=== PATIENT | male | born 1960 | race Caucasian/White ===

== ENCOUNTER 2017-10-26 06:36 | Day surgery (SDC) | payer BC, OTHER ==
--- NOTE | 2017-09-30 10:08 | HP ---
PREOPERATIVE HISTORY AND PHYSICAL: DATE OF ADMISSION/SURGERY: 10/26/17 [facility] DATE OF OFFICE VISIT: 09/29/17 ATTENDING SURGEON: Mason Adhikari MD * (DICTATED BY SARAH RODRIGES) PROCEDURE: Right shoulder arthroscopy, decompression, debridement, subpectoral biceps tenodesis, and excision of distal clavicle. CHIEF COMPLAINT: Right shoulder pain. HISTORY OF PRESENT ILLNESS: Rajiv is a 57-year-old male who presents to the clinic for right shoulder pain due to impingement, AC joint arthritis and biceps tendonitis for several months. He has failed conservative measures and therefore agreed to undergo a right shoulder arthroscopy, decompression and debridement, subpectoral biceps tenodesis, and excision of distal clavicle with Dr. Adhikari on 10/26/17. PAST MEDICAL HISTORY: History of DVT in 2008, history of diabetes, and history of benign PVCs. PAST SURGICAL HISTORY: Left ankle repair, left shoulder debridement, left eye muscle repair, and hemorrhoid surgery. The patient denies prior complications with anesthesia. MEDICATIONS: 1. Magnesium oxide 400 mg one by mouth twice a day. 2. Aspirin 81 mg one by mouth every day. 3. Losartan potassium 25 mg one by mouth every day. 4. Januvia 100 mg take one by mouth every day. 5. Metformin 1000 mg one by mouth twice a day. 6. Fluticasone propionate 50 mcg/ACT two sprays each nostril daily as needed. 7. Ibuprofen 200 mg two tablets as needed for pain. ALLERGIES: SHELLFISH. FAMILY HISTORY: Denies pertinent family history. 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 He denies tobacco use. He reports occasional alcohol consumption. He denies illegal drug use. REVIEW OF SYSTEMS: A 14-point review of systems was reviewed with the patient. Positive for current complaint, otherwise negative. Denies chest pain or shortness of breath. Denies fever or chills. Denies history of bleeding disorder. Denies history of MRSA. Positive for history of DVT. PHYSICAL EXAMINATION GENERAL: Well-developed, well-nourished 57-year-old male, in no acute distress. Alert and oriented x3. Appropriate mood and affect. VITAL SIGNS: Height 73, weight 231, pulse 72, blood pressure 124/78, temperature 96.1, BMI 30.5. HEENT: Normocephalic, atraumatic. PERRLA. Throat clear. NECK: Supple. PULMONARY: Lungs are clear to auscultation bilaterally. No wheezing, rhonchi, or rales. CARDIO: Regular rate and rhythm. S1 and S2. No murmurs, gallops, or rubs. No edema. ABDOMEN: Positive bowel sounds, soft, nontender. NEUROLOGIC: Alert and oriented x3. Cranial nerves are grossly intact. Sensation is intact to light touch. MUSCULOSKELETAL: Right upper extremity: Skin is intact. No warmth or erythema. Forward flexion 140, abduction 140, external rotation 45, internal rotation to the sacrum. +4/5 strength to supraspinatus testing. Pain with belly press and bear hug. Positive Neer's, Speed, Gomes-Agustin, [place]. + 2 radial pulse. Sensation is intact to light touch distally. STUDIES: No full thickness tear of the rotator cuff, some mild tendinosis, fluid along the biceps groove and fluid in the AC joint. IMPRESSION: Right shoulder impingement, AC joint arthritis, and biceps tendonitis. PLAN/RECOMMENDATIONS: The patient is scheduled to undergo a right shoulder arthroscopy, decompression, and debridement, subpectoral biceps tenodesis, and excision of distal clavicle with Dr. Adhikari on 10/26/17. He will return to the office in 10 to 14 days postop for followup and suture removal. [place] was sent to the patient's pharmacy for postop pain management, Zofran for treatment of nausea, and Keflex for antibiotic prophylaxis. SARAH RODRIGES [id number]/[facility] #: [id number] MTDSanju
[~2017-10-26 06:36] MED LIST: Buffered Lidocaine 0.9% SYRIN* 5 ML/SYR SYRINGE INTRADERM ONE
[2017-10-26] MEDS ORDERED: ceFAZolin 2 GM PREMIX (*) 2 GM/50 ML BAG IVPB ONE (06:45)
[2017-10-26] MEDS ORDERED: Bupivacaine 0.25% SDV* 30 ML ONE (07:00)
[2017-10-26] MEDS ORDERED: fentaNYL* 50 MCG/ML 2 ML VIAL (100 MCG VIAL) ONE (07:31)
[2017-10-26] MEDS ORDERED: Midazolam* 1 MG/ML 2 ML VIAL (2 MG) ONE ×2 (07:31→07:56)
[2017-10-26] MEDS ORDERED: Famotidine IV* 10 MG/ML 2 ML (20 mg) ONE (07:48)
[2017-10-26] MEDS ORDERED: ROPIVACAINE 5 MG/ML 30 ML BTL (0.5%) ONE (07:49)
[2017-10-26] MEDS ORDERED: Propofol* 10 MG/ML 20 ML BTL IV PUSH ONE (08:17)
[2017-10-26] MEDS ORDERED: Dexamethasone IV* 4 MG/ML 1 ML (4 MG) ONE (08:17)
[2017-10-26] MEDS ORDERED: Ketorolac INJ* 30 MG/ML 1 ML VIAL ONE (08:17)
[2017-10-26] MEDS ORDERED: Ondansetron INJ* 2 MG/ML VIAL ONE (08:17)
[2017-10-26] MEDS ORDERED: methylPREDNISolone ACETATE 80* 80 MG/ML 1 ML VIAL ONE (08:49)
[2017-10-26] MEDS ORDERED: DiMENhydriNATE IV* 50 MG/ML VIAL IV PUSH PRN (08:58)
[2017-10-26] MEDS ORDERED: PROCHLORPERAZINE INJ 5 MG/ML 2 ML VIAL IV PRN (08:58)
[2017-10-26] MEDS ORDERED: Ondansetron INJ* 2 MG/ML VIAL IV PRN (08:58)
[2017-10-26] MEDS ORDERED: Acetaminophen TAB* 325 MG PO PRN (08:58)
[2017-10-26] MEDS ORDERED: HYDROcodone/ACETAMIN 5-325 MG* 1 TAB PO PRN (08:58)
[2017-10-26] MEDS ORDERED: HYDROmorphone INJ* 1 MG/ML CARPUJECT SYRINGE IV PRN (08:58)
[2017-10-26] MEDS ORDERED: fentaNYL* 50 MCG/ML 2 ML VIAL (100 MCG VIAL) IV PRN (08:58)
[2017-10-26] MEDS ORDERED: Phenylephrine IV* 40 MCG/ML 10 ML SYRINGE ONE (09:08)
[2017-10-26 11:37] VITALS: BP 124/68
--- NOTE | 2017-10-27 02:03 | OP ---
CC: PCP, Merrill Slade NP * DATE OF OPERATION: 10/26/17 - [facility] DATE OF : 62 SURGEON: Mason Adhikari MD ASTROBIOLOGIST: SARAH Maurer ANESTHESIOLOGIST: Diego Singh MD ANESTHESIA: General interscalene block. PRE-OP DIAGNOSES: Right shoulder acromioclavicular joint arthritis, bicipital tendinitis with SLAP type 2 tear and impingement. POST-OP DIAGNOSES: Right shoulder impingement, SLAP tear, acromioclavicular joint arthritis as well as mild adhesive capsulitis. OPERATIVE PROCEDURE: 1. Right shoulder arthroscopy with glenohumeral debridement and lysis of adhesions in the interval. 2. Subacromial decompression with acromioplasty. 3. Arthroscopic distal clavicle excision. 4. Open subpectoral biceps tenodesis. 5. Subacromial injection of 80 mg of Depo-Medrol. 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 He has had number surgeries on his left shoulder and he continued to have persistent issues, but his right shoulder has been bothering him. We talked about risks and benefits of surgical versus nonoperative treatment, he has elected to proceed with surgery. IMPLANTS USED: One 2.8-mm Q-Fix anchor. COMPLICATIONS: None. ESTIMATED BLOOD LOSS: Minimal. DESCRIPTION OF PROCEDURE: The patient was greeted in the preoperative area by the attending surgeon. Correct extremity was marked and consent was confirmed. The patient was brought back to the operating suite, where he was placed in supine position on the operating table. He then underwent preoperative interscalene nerve block by the anesthesiologist, after which he underwent general anesthesia with endotracheal intubation. The patient was then placed in left lateral decubitus position with an axillary roll. All bony prominences were padded. He was secured with the pegboard. His right arm was draped unsterile with 10 pounds of traction. The right shoulder was prepped and draped in usual sterile fashion using chlorhexidine soap, scrub, and alcohol wipe, and a final prep of ChloraPrep. After appropriate surgical pause indicating site, side, procedure, and administration of antibiotics, the standard posterior lateral portal was made sharply with an 11 blade. The scope was introduced into the joint. Joint had abundant synovitis and erythema particularly under the supraspinatus and the interval. There was a thick band of scar. The superior labrum was torn from anterior posterior from the 10 o'clock to 2 o'clock position. The anterior labrum had some mild fraying. There were grade 0 to 1 changes to the glenoid, grade 0 to 1 changes to the humeral head. The inferior recess was intact. The anterior portals were made in outside-in fashion. The subscap was intact. The undersurface of the rotator cuff had a very mild amount of fraying particularly at the supraspinatus. The infraspinatus was intact. There was mild amount of early arthritic changes, grade 2 changes at the very inferior aspect of the humerus. The inferior recess was intact. There was synovitis that was present. The anterior portal was made in an outside-in fashion. Shaver was used to debride the anterior, posterior and superior labrum. The biceps was taken through range of motion rather and found to have abundant synovitis and irritation with some mild damage to the michael. The biceps was then tenotomized. The shaver was used to debride back the stump. The capsular tissue in the interval was very inflamed and irritated. This was then debrided back using an electrocautery device to try to release some of the tight bands of scar tissue in the interval anteriorly. At this point, the rotator cuff was examined to see if there was any tearing on the bursal side, but the quality of tissue was very good, it was determined to not require any kind of repair or further debridement. The joint was thoroughly irrigated. The scope was brought into the subacromial space. The subacromial space was examined. There was a moderate amount of bursitis that was present, particularly posterior and laterally. The lateral portal was made in an outside-in fashion. Shaver was used to debride back the bursa and to expose the rotator cuff, which had no evidence of tearing, was good quality. There was a moderate-sized spur verona-laterally that was taken back, which was exposed using electrocautery device. The spur was identified and then 4-0 oval bur was used to debride this back and all fluid and debris was removed. Once this was complete, attention was directed to the AC joint. Distal clavicle was examined and there was a significant amount of stenosis. The bur was brought to the anterior portal and used to remove approximately 8 mm of distal clavicle. The clavicle was taken through range of motion. Final images were obtained. All fluid and debris was moved from this portion of the case. At this point, an 18-gauge needle was placed in subacromial space under arthroscopic visualization for later injection. Attention was directed to the biceps. Bed was air planed to the right side. The anterior aspect of the shoulder was prepped again using a ChloraPrep, the soft tissue was carefully dissected using Metzenbaum scissors until the fascia was identified, the remainder dissection was done bluntly. The pec was elevated superiorly, the bicipital groove was palpated. Biceps was brought through the groove and found to have abundant synovitis and inflammation and mild amount of tendinopathy. The groove was then prepared in usual fashion with electrocautery device, red ball rasp, osteotome. Once this was done, the Q -Fix anchor was placed with excellent purchase. Unicortically, the sutures were then passed through the tendon approximately 1 cm proximal to the musculotendinous junction in Nolberto Etienne-type configuration. The excess stump was excised and the biceps shuttled back into the wound. The wounds were copiously irrigated with sterile saline. The anterior wound was closed in layers with 2-0 Vicryl, 3-0 Monocryl. The portals were closed with 3-0 nylon. The subacromial space was injected with 80 mg of Depo-Medrol. The anterior wound was injected with 20 cc of 0.25% Marcaine plain. Sterile dressings were applied, a Cryo/Cuff, and UltraSling. He was awoken from anesthesia and transferred to the PACU in stable condition. POSTOPERATIVE PLAN: He will be nonweightbearing. He will be in a sling for approximately 4 weeks. He will be discharged on pain medication, antibiotics. DVT prophylaxis was considered but deferred due to no previous personal or family history. I will see the patient back in 10 to 14 days. [id number]/[facility] #: [id number] [facility] HOSPITALSanju
== END 2017-10-26 11:12 | disposition home or self-care (01) ==
LOC: OREAST 06:36
PROVIDERS: ATTEND Orthopaedic Surgery
DX: M19.011 Primary osteoarthritis, right shoulder (principal); M75.21 Bicipital tendinitis, right shoulder; S43.431A Superior glenoid labrum lesion of right shoulder, initial encounter; M25.811 Other specified joint disorders, right shoulder; M75.01 Adhesive capsulitis of right shoulder; X58.XXXA Exposure to other specified factors, initial encounter; Y92.9 Unspecified place or not applicable; G89.18 Other acute postprocedural pain; M75.81 Other shoulder lesions, right shoulder; Z79.82 Long term (current) use of aspirin; Z79.84 Long term (current) use of oral hypoglycemic drugs; E11.9 Type 2 diabetes mellitus without complications
CPT/HCPCS: C1776; J0690; J1040; J1100; J1885; J2250; J2405; J2704; J2795; J3010

== ENCOUNTER 2018-05-10 16:08 | Inpatient (IN) | payer BC ==
[2018-05-10] MEDS ORDERED: Ampicillin ADVAN(*) 1 GM in NS 0.9% 50 ML* 50 ML IVPB ONE (16:23)
[2018-05-10 16:52] LABS: ABS Basophils 0 10^3/ul (0-0.2); ABS Eosinophils 0.3 10^3/ul (0-0.6); ABS Lymphocytes 1.3 10^3/ul (1.0-4.8); ABS Monocytes 0.6 10^3/ul (0-0.8); ABS Neutrophils 3.5 10^3/ul (1.5-7.7); ABS Nucleated RBC 0 10^3/ul; Eosinophil % 4.7 % (0-6); Hematocrit 42 % (42-52); Hemoglobin 14.4 g/dl (14.0-18.0); Lymphocyte % 22.6 % (25-47); Mean Corpuscular HGB Conc 35 g/dl (31-36); Mean Corpuscular Hemoglobin 31 pg (27-31); Mean Corpuscular Volume 89 fL (80-94); Mean Platelet Volume 8.7 um3 (7.4-10.4); Nucleated Red Blood Cells % 0.1; Platelet Count 239 10^3/ul (150-450); Red Blood Count 4.69 10^6/ul (4.00-5.40); Red Cell Distribution Width 13 % (10.5-15); White Blood Count 5.7 10^3/ul (3.5-10.8)
--- NOTE | 2018-05-10 16:56 | RAD ---
Indication: Preop osteomyelitis. Single frontal view of the chest performed at 1645 hours was reviewed. Comparison is made with previous exam dated April 11, 2015. No mediastinal shift is noted. Heart is of normal size and configuration. Lung garvey appear clear. IMPRESSION: NO ACTIVE CARDIOPULMONARY DISEASE IS NOTED.
[2018-05-10 17:01] LABS: INR 0.98 (0.77-1.02)
[2018-05-10] MEDS ORDERED: Fluticasone NASAL SPRAY 50MCG* 16 gm SPRAY BTL BOTH NARES PRN (17:09)
[2018-05-10] MEDS ORDERED: Vancomycin(*) 1,000 MG in NS 0.9% 250 ML* 250 ML IVPB ONE (17:10)
[2018-05-10] MEDS ORDERED: Dextrose 50% Syringe 50 ML* 25 GM/50 ML SYRINGE IV PUSH PRN (17:15)
--- NOTE | 2018-05-10 17:18 | ED ---
Ari Hennessy Tenzin, scribed for Rajiv Rico MD on 05/10/18 at 1637 . Lower Extremity - HPI Summary HPI Summary: Pt is a 58 years old male with history of NIDDM presenting to the ED complaining of left foot swelling since two weeks ago. Pt had an MRI done at [facility] and per triage, diagnosed with osteomylitis. Pt notes that he was recently on Clindamycin and Cipro and added that he just finished his Cipro today. He does not note any aggravating factor. - History of Current Complaint Chief Complaint: EDExtremityLower Stated Complaint: LT FT SWOLLEN Time Seen by Provider: 05/10/18 16:16 Hx Obtained From: Patient Onset/Duration: Weeks - two weeks. Pain Intensity: 0 Location: Is Discrete @ - left foot. Associated Signs And Symptoms: Positive: Swelling - left foot.. Negative: Fever Aggravating Factor(s): Nothing Alleviating Factor(s): Nothing - Allergies/Home Medications Allergies/Adverse Reactions: Allergies Allergy/AdvReac Type Severity Reaction Status Date / Time shellfish derived Allergy Difficulty Verified 05/10/18 16:09 Breathing POWDER IN LATEX GLOVES Allergy SKIN Uncoded 05/10/18 16:09 IRRITATION PMH/Surg Hx/FS Hx/Imm Hx Endocrine/Hematology History: Reports: Hx Diabetes - TYPE II- ON ORAL MEDICATION FOR Cardiovascular History: Denies: Hx Hypercholesterolemia, Hx Hypertension, Hx Pacemaker/ICD, Hx Peripheral Vascular Disease, Other Cardiovascular Problems/Disorders Respiratory History: Denies: Other Respiratory Problems/Disorders GI History: Denies: Other GI Disorders History: Denies: Hx Renal Disease Musculoskeletal History: Denies: Hx Arthritis, Hx Rheumatoid Arthritis, Hx Osteoporosis, Other Musculoskeletal History Sensory History: Reports: Hx Contacts or Glasses - contacts, advised Denies: Hx Cataracts, Hx Glaucoma, Hx Hearing Aid Opthamlomology History: Reports: Hx Contacts or Glasses - contacts, advised Denies: Hx Cataracts, Hx Glaucoma Neurological History: Denies: Hx Headaches, Hx Seizures, Hx Transient Ischemic Attacks (TIA), Other Neuro Impairments/Disorders Psychiatric History: Denies: Hx Anxiety, Hx Depression, Hx Panic Disorder - Surgical History Surgery Procedure, Year, and Place: LEFT ankle fracture REPAIR THEN HARDWARE REMOVED 1991- [facility] [place]. LEFT lazy eye-10 YEARS IAR-IEI-[id number] MUSCLES. HEMORRHOID SURGERY- 20 YEARS AGO. LEFT SHOULDER SCOPING 04/27/15 [facility] [place]-LEFT SHOULDER SURGERY 01/26/16. RIGHT SHOULDER SURGER 10/2018. trigger finger, left , [facility] [place], 2015 Hx Anesthesia Reactions: Yes - long time to wake up Infectious Disease History: No Infectious Disease History: Denies: Traveled Outside the [place] in Last 30 Days - Family History Known Family History: Positive: Other - Pt denies any relevant family history. - Social History Alcohol Use: Occasionally Alcohol Amount: 10 per month Hx Substance Use: No Substance Use Type: Reports: None Hx Tobacco Use: No Smoking Status (MU): Never Smoked Tobacco Review of Systems Negative: Fever, Chills Negative: Vomiting, Diarrhea, Nausea Positive: Other - Left foot pain. All Other Systems Reviewed And Are Negative: Yes Physical Exam - Summary Physical Exam Summary: Appearance: Well appearing, no pain distress Skin: warm, dry, reflects adequate perfusion Head/face: normal Eyes: EOMI, TANIA ENT: normal Neck: supple, non-tender Respiratory: CTA, breath sounds present Cardiovascular: RRR, pulses symmetrical Abdomen: non-tender, soft Bowel Sounds: present Musculoskeletal: normal, strength/ROM intact Neuro: normal, sensory motor intact, A&Ox3 Left foot toe: Surgical incision placed in the middle of the callus without any drainage. Diffuse redness, swelling and minimal tenderness. Left foot: Ecchymosis on the left third nail bed. Decrease sensation on the foot. Triage Information Reviewed: Yes Vital Signs On Initial Exam: Initial Vitals Temp Pulse Resp BP Pulse Ox 98.0 F 95 13 123/75 96 05/10/18 16:09 05/10/18 16:09 05/10/18 16:09 05/10/18 16:09 05/10/18 16:09 Vital Signs Reviewed: Yes Diagnostics - Vital Signs Vital Signs Temp Pulse Resp BP Pulse Ox 05/10/18 16:09 98.0 F 95 13 123/75 96 - Laboratory Lab Results: Lab Results 05/10/18 05/10/18 05/10/18 Range/Units 16:32 16:32 16:32 WBC 5.7 (3.5-10.8) 10^3/ul RBC 4.69 (4.00-5.40) 10^6/ul Hgb 14.4 (14.0-18.0) g/dl Hct 42 (42-52) % MCV 89 (80-94) fL MCH 31 (27-31) pg MCHC 35 (31-36) g/dl RDW 13 (10.5-15) % Plt Count 239 (150-450) 10^3/ul MPV 8.7 (7.4-10.4) um3 Neut % (Auto) 61.0 (38-83) % Lymph % (Auto) 22.6 L (25-47) % Mckean % (Auto) 11.0 H (0-7) % Eos % (Auto) 4.7 (0-6) % Baso % (Auto) 0.7 (0-2) % Absolute Neuts (auto) 3.5 (1.5-7.7) 10^3/ul Absolute Lymphs (auto) 1.3 (1.0-4.8) 10^3/ul Absolute Monos (auto) 0.6 (0-0.8) 10^3/ul Absolute Eos (auto) 0.3 (0-0.6) 10^3/ul Absolute Basos (auto) 0 (0-0.2) 10^3/ul Absolute Nucleated RBC 0 10^3/ul Nucleated RBC % 0.1 INR (Anticoag Therapy) 0.98 (0.77-1.02) APTT 29.7 (26.0-36.3) seconds Lactic Acid 2.1 H* (0.5-2.0) mmol/L Result Diagrams: 05/10/18 16:32 Lab Statement: Any lab studies that have been ordered have been reviewed, and results considered in the medical decision making process. - Radiology CHEST X RAY Radiology Interpretation Completed By: Radiologist - IMPRESSION: NO ACTIVE CARDIOPULMONARY DISEASE NOTED. - EKG 16:32 Cardiac Rate: NL - at 88BPM EKG Interpretation: 1 degree AV block, No acute ST, Poor R wave progression. Re-Evaluation - Re-Evaluation First Eval Change: Unchanged - Patient stable through ER course Lower Extremity Course/Dx - Course Course Of Treatment: Patient is very stable at this point. MRI positive for osteomyelitis. Previously on clindamycin/Cipro. Start IV ampicillin. Admit to the hospitalist for further. Bluntly removed the callus from the portion that the animal shelter worker had incised earlier in the day. - Diagnoses Provider Diagnoses: Osteomyelitis of toe of left foot, Diabetes mellitus type 2 in nonobese - Physician Notifications Discussed Care Of Patient With: Caprice Norwood Time Discussed With Above Provider: 16:33 - Pt will be admitted to hospital. Discharge - Sign-Out/Discharge Documenting (check all that apply): Discharge/Admit/Transfer - Admit - Discharge Plan Condition: Stable Disposition: ADMITTED TO [facility] Referrals: Merrill Slade NP [Primary Care Provider] - - Billing Disposition and Condition Condition: STABLE Disposition: Admitted to [facility] The documentation as recorded by the Ari de la rosa Tenzin accurately reflects the service I personally performed and the decisions made by , Rajiv Rico MD.
[2018-05-10 17:24] LABS: EGFR Non-African American 92.9 (>60)
[2018-05-10] MEDS ORDERED: Vancomycin per Pharmacy* NOTE FOLLOW UP PRN (17:40)
[2018-05-10] MEDS ORDERED: Vancomycin 2000 MG X 1 dose, then per Pharmacy PROTOCOL IVPB ONE ×2 (18:00)
[2018-05-10] MEDS ORDERED: Vancomycin(*) 0 MG in NS 0.9% 250 ML* 250 ML IVPB SCH (18:00)
--- NOTE | 2018-05-10 19:49 | HP ---
CC: Merrill Slade NP; Dr. Zavaleta; Dr. Ronquillo * HISTORY AND PHYSICAL: DATE OF ADMISSION: 05/10/18 TIME OF EVALUATION: 4:50 p.m. PRIMARY CARE PROVIDER: Merrill Slade NP CONSULTING INFECTIOUS DISEASE SPECIALIST: Dr. Zavaleta. HOST AND HOSTESS: Dr. Ronquillo. CHIEF COMPLAINT: "My toe is infected." HISTORY OF PRESENT ILLNESS: Mr. 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 The patient states his history goes back to February when he sustained an abrasion to a callus on his left hallux. He developed edema, erythema, was seen by his primary care provider, was prescribed cephalexin that he took for 7 days and the symptoms resolved. He states that in early April, it happened again. He saw his retail product demo specialist, was prescribed cephalexin again with good response, but shortly after finishing the course, symptoms came back once again. He was seen last week by Dr. Ronquillo and was prescribed ciprofloxacin and clindamycin. He states that at this time, he had some improvement, but not as dramatic as before. The patient had an MRI of the lower extremity done on 05/06/18 and it showed findings compatible with osteomyelitis and the plan was for him to be seen by Infectious Disease as outpatient, but as he did not have significant improvement with the antibiotics as he did in the past, he was referred to the emergency room for further evaluation. The patient denies fever, chills, nausea, vomiting or other systemic symptoms. Although, the patient thinks that there was improvement from this course of antibiotics, his significant other, who is a nurse, is not so sure that she thinks the edema is still unchanged. 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 PAST SURGICAL HISTORY: 1. The patient has multiple left shoulder surgeries for rotator cuff repair. 2. Status post left ankle ORIF for trimalleolar fracture. MEDICATION LIST: 1. Aspirin 81 mg p.o. daily. 2. Fluticasone 1 spray to both nares daily as needed for allergy symptoms. 3. Ibuprofen 400 to 600 mg p.o. daily as needed for pain. 4. Losartan 25 mg p.o. q.p.m. 5. Magnesium oxide 400 mg p.o. b.i.d. 6. Metformin 1000 mg p.o. b.i.d. 7. Januvia 100 mg p.o. q.p.m. ALLERGIES: SHELLFISH. FAMILY HISTORY: It is reviewed, but the patient states that he does not have much contact with his family, so he is unable to tell me about any of thier diagnosis. SOCIAL HISTORY: The patient denies tobacco use. He drinks occasionally, sometimes a beer, sometimes rum. No recent alcohol intake. Surrogate decision maker is his partner, Melina Bautista, phone number [phone] or his son, aDvid Motley, same phone number. REVIEW OF SYSTEMS: A 14-point review of systems was performed and all the pertinent negative and positive findings are in the HPI. PHYSICAL EXAMINATION GENERAL: The patient is a pleasant gentleman, lying in the ED stretcher, in no acute distress. VITAL SIGNS: Temperature 98.0, heart rate is 90, respiratory rate is 13, oxygen saturation is 95% on room air, blood pressure is 124/77. HEENT: Pupils are equal. Moist mucous membranes. CHEST: Breath sounds bilaterally. No added sounds. CVS: Normal S1, S2. Regular rate and rhythm. ABDOMEN: Soft. Bowel sounds are present. EXTREMITIES: The patient has mild left foot edema also around the ankle area that appears to be chronic. There is edema to his left hallux with mild erythema. Some skin desquamation and a large callus on the plantar aspect. There are good dorsalis pedis pulses bilaterally. NEURO: He is alert, awake, oriented x3. Able to move all 4 extremities. Sensation is decreased in both feet. DIAGNOSTIC STUDIES/LAB DATA: The patient had a CBC that showed a WBC of 5.7, hemoglobin of 14.4, hematocrit of 42, platelets 239 with 61% neutrophils. INR was 0.9. Chemistry showed a sodium of 136, potassium 4.2, chloride of 102, bicarb of 24, BUN 18, creatinine of 0.85, glucose of 206 with a lactic acid of 2.1, calcium is 9.8. LFTs are normal. Portable chest x-ray showed no active cardiopulmonary disease. EKG done on 05/10/18 at 1632 showed sinus rhythm at 88 beats per minute with Q- waves in II, III and aVF. There is no prior EKG to compare. MRI of the lower extremity done on 05/06/18 showed diffuse T2 marrow edema and partial loss of normal T1 marrow hyperintensity as well as enhancement at the distal phalanx of the great toe consistent with osteomyelitis. No additional foci of osteomyelitis evident within the field of view. Diffuse superficial and deep soft tissue edema and corresponding hyperemia most consistent with osteomyelitis and myositis. No loculated soft tissue plain abscess collection evident. Negative for fracture or dislocation. Hammertoe deformities of the toe, greatest at the 4th toe. ASSESSMENT AND PLAN: Mr. Motley is a 58-year-old male with a past medical history of diabetes with diabetic neuropathy and retinopathy who presented to the emergency room with clinically recurrent infections to his left hallux compatible with osteomyelitis and diabetic foot infection. 1. The patient will be admitted to the medical floor. He will be started on vancomycin and cefepime empirically and he will be seen in consultation by Infectious Disease. At this point, he does not seem to have any fluid collection that needs to be drained. So, I do not think surgery is indicated at this point. The patient has callus on the plantar aspect of his hallux, but no open wounds with drainage. He will probably require long-term antibiotics as outpatient and close follow up with ID and Podiatry. 2. Type 2 diabetes. We will check a hemoglobin A1c and continue Januvia and add a lispro sliding scale. 3. Mild lactic acidosis. The patient's lactic acid is merely elevated at 2.1 and I believe this is likely secondary to metformin use as the patient is not septic at this point. 4. DVT prophylaxis. The patient has a score of 2 on the DVT Prophylaxis Risk Assessment Guide and he will be started on subcutaneous heparin. 5. Code status is full. TIME SPENT: Approximately 55 minutes was spent with the patient and significant other interview, medical records review, physical examination to complete this admission, more than half of this time was spent [id number] with the patient and coordination of care. [id number]/[facility] #: [id number] CANDICE
[2018-05-10] MEDS: Magnesium Oxide TAB* 400 MG PO SCH (20:58)
[2018-05-10] MEDS: Losartan TAB* 25 MG PO SCH (20:58)
[2018-05-10] MEDS: Insulin LISPRO* 1 UNITS UNIT SUBCUT SCH (21:01)
[2018-05-10] MEDS: Heparin VIAL(*) 5000 UNITS/ML VIAL (FIVE THOUSAND) SUBCUT SCH (21:03)
[2018-05-10] MEDS: SITAGLIPTIN 100 MG PO SCH (21:29)
[2018-05-10 22:01] LABS: Urine Appearance Clear; Urine Blood 1+ (Negative); Urine Color Yellow; Urine Ketones Negative (Negative); Urine Protein 1+(30 mg/dL) (Negative); Urine Red Blood Cell Absent (Absent); Urine Specific Gravity 1.023 (1.010-1.030); Urine Urobilinogen Negative (Negative); Urine White Blood Cell Absent (Absent)
[2018-05-10] MEDS: Cefepime 1 GM in Dextrose(*) 1 GM/50 ML BAG IV SCH (22:27)
[2018-05-11] MEDS: Vancomycin(*) 1,250 MG in NS 0.9% 250 ML* 250 ML IVPB SCH ×3 (03:58→20:26)
[2018-05-11] MEDS: Heparin VIAL(*) 5000 UNITS/ML VIAL (FIVE THOUSAND) SUBCUT SCH ×3 (05:54→21:56)
[2018-05-11 07:16] LABS: EGFR Non-African American 105.7 (>60)
[2018-05-11] MEDS: Cefepime 1 GM in Dextrose(*) 1 GM/50 ML BAG IV SCH (08:27)
[2018-05-11] MEDS: Magnesium Oxide TAB* 400 MG PO SCH ×2 (08:28→21:54)
[2018-05-11] MEDS: Aspirin EC TAB* 81 MG TAB.EC PO SCH (08:28)
[2018-05-11] MEDS: Insulin LISPRO* 1 UNITS UNIT SUBCUT SCH ×4 (09:15→21:54)
--- NOTE | 2018-05-11 16:12 | PN ---
Subjective Date of Service: 05/11/18 Interval History: Patient has no complaints. No increased pain in foot. No F/C, N/V, abdominal pain, diarrhea, CP, SOB, Dysuria, dizziness, palpitations. Minimal pain in foot. No Reports of neuropathy. Discussed treatment and clinical course extensively with and patient. Family History: Unchanged from Admission Social History: Unchanged from Admission Past Medical History: Unchanged from Admission Objective Active Medications: Aspirin (Aspirin Ec Tab*) 81 mg PO DAILY [facility] Last Admin: 05/11/18 08:28 Dose: 81 mg Dextrose (D50w Syringe 50 Ml*) 12.5 gm IV PUSH .FOR FS < 60 - SS PRN PRN Reason: FS < 60 Fluticasone Propionate (Flonase Nasal [place] 50mcg*) 1 spray BOTH NARES DAILY PRN PRN Reason: NASAL CONGESTION Heparin Sodium (Porcine) (Heparin Vial(*)) 5,000 units SUBCUT Q8HR [facility] Last Admin: 05/11/18 13:42 Dose: 5,000 units Vancomycin HCl 1,250 mg/ (Sodium Chloride) 250 mls @ 166.667 mls/hr IVPB Q8H [facility] Last Admin: 05/11/18 13:33 Dose: 166.667 mls/hr Insulin Human Lispro (Humalog*) 0 units SUBCUT ACHS [facility]; Protocol Last Admin: 05/11/18 13:44 Dose: 2 units Lactobacillus Rhamnosus (Lactobacillus Acidophilus*) 1 tab PO DAILY [facility] Losartan Potassium (Cozaar Tab*) 25 mg PO QPM [facility] Last Admin: 05/10/18 20:58 Dose: 25 mg Magnesium Oxide (Magox 400 Tab*) 400 mg PO BID [facility] Last Admin: 05/11/18 08:28 Dose: 400 mg Pharmacy Consult (Vancomycin Per Pharmacy*) 1 note FOLLOW UP . PRN PRN Reason: PER PROTOCOL Pharmacy Profile Note (Vancomycin Trough Check) 1 note FOLLOW UP 193 ONE Stop: 05/11/18 19:31 Sitagliptin Phosphate (Januvia (Nf)) 100 mg PO QPM [facility]; Protocol Last Admin: 05/10/18 21:29 Dose: Not Given Vital Signs - 8 hr 05/11/18 05/11/18 08:30 11:22 Temperature 97.9 F Pulse Rate 73 Respiratory 17 16 Rate Blood Pressure 125/75 (mmHg) O2 Sat by Pulse 96 Oximetry Oxygen Devices in Use Now: None Appearance: Patient is a 58yo male who appears stated age and is sitting in the bed in NAD. Eyes: No Scleral Icterus, PERRLA Ears/Nose/Mouth/Throat: NL Teeth, Lips, Gums, Clear Oropharnyx, Mucous Membranes Moist Neck: NL Appearance and Movements; NL JVP, Trachea Midline Respiratory: Symmetrical Chest Expansion and Respiratory Effort, Clear to Auscultation Cardiovascular: NL Sounds; No Murmurs; No JVD, RRR, No Edema Abdominal: NL Sounds; No Tenderness; No Distention, No Hepatosplenomegaly Lymphatic: No Cervical Adenopathy Extremities: No Edema, No Clubbing, Cyanosis Skin: No Nodules or Sclerosis, - - Small scab with erythema and swelling on left great toe. Neurological: Alert and Oriented x 3, NL Sensation, NL Muscle Strength and Tone , - - CN II-XII intact. Result Diagrams: 05/10/18 16:32 05/11/18 06:29 Additional Lab and Data: Lab Results Assess/Plan/Problems-Billing Assessment: Patient is a 58yo male with a PMH for DM II, neuropathy who presents with recurrent foot infection with MRI consistent with osteomyelitis who is currently on IV antibiotics. - Patient Problems (1) Osteomyelitis Current Visit: Yes Status: Acute Code(s): M86.9 - OSTEOMYELITIS, UNSPECIFIED SNOMED Code(s): 06563512 Comment: Appreciated ID consult. Start Daptomycin tomorrow. PICC line insertion. No signs of sepsis. Overlying wound and erythema improving in appearance per . Strong pulses on feet. (2) Diabetes Current Visit: Yes Status: Acute Code(s): E11.9 - TYPE 2 DIABETES MELLITUS WITHOUT COMPLICATIONS SNOMED Code(s): 89364104 Comment: SSI, Januvia, Moderate control. Hemoglobin A1c 8.8. Will need treatment intensification through primary care provider. (3) DVT prophylaxis Current Visit: Yes Status: Acute Code(s): RHO3958 - SNOMED Code(s): 377158535 Comment: SCDs and Frequent ambulation. Low risk (4) Full code status Current Visit: Yes Status: Acute Code(s): Z78.9 - OTHER SPECIFIED HEALTH STATUS SNOMED Code(s): 366329429 Status and Disposition: Inpatient.
--- NOTE | 2018-05-11 17:11 | CONS ---
CONSULTATION REPORT: DATE OF CONSULT: 05/11/18 REQUESTING PROVIDER: SARAH Pelletier. CONSULTING SERVICE: Infectious Disease. REASON FOR CONSULT: Left great toe infection. IMPRESSION: 1. Acute osteomyelitis of the left great toe, now with a cellulitis extending up to forefoot and leg , which are improving on antibiotics. There was a plantar wound, which is nearly resolved. It has b een present for about 3 months. The MRI shows increased T2 signal and loss of normal 1 marrow hyperi ntensity, enhancement at the distal phalanx of the right toe. Taken together, he has acute osteomyel itis. Usually, Gram positive including staph and strep. He is otherwise improving here on vancomyci n and cefepime. 2. Diabetes with peripheral neuropathy. The last A1c here was 8.8 drawn yesterday. 3. Obesity. RECOMMENDATION: Continue vancomycin while he is here and then daptomycin 800 mg IV for 24 hours with weekly CBC, CMP, CRP and CK for 42 days while he is at home via PICC, which I have ordered. Followu p with me next week. We discussed side effects including allergic reaction to antibiotics, which cou ld be fever or rash, diarrhea, which could be antibiotic associated or C. difficile infection, which would be more frequent and explosive liquid stools. A PICC line infection, which is less likely, but could include fever and malaise. He will notify me if any of those. HISTORY OF PRESENT ILLNESS: This is a 58-year-old man with diabetes and neuropathy, admitted with le ft foot infection. He developed a wound on his plantar surface of the left great toe in February, it wa s complicated by cellulitis, which improved with Keflex and after he stopped it few days later, the r edness and swelling returned. He had another course of Keflex without much improvement. Had his toe x-ray that showed no foreign body or fracture in February. He followed with his operations specialist. Because of worsening symptoms, he obtained an MRI with findings as noted above. He has had no fevers, chills o r sweats at home. His blood sugars have been running in 200s when he checks it premeal. Because of development of redness and swelling that was spreading up his leg, he came to the hospital yesterday. He had no leukocytosis. CRP was 2. He was started on vancomycin and cefepime. Today, he has had improvement in the swelling and redness in his foot and lower leg, does not have any pain and his wilfredo etite is good. PAST MEDICAL HISTORY: 1. Type 2 diabetes, complicated by retinopathy and neuropathy. 2. Obesity. 3. Status post multiple left shoulder surgeries and rotator cuff repair. 4. Status post left ankle open reduction and internal fixation after trimalleolar fracture. MEDICATIONS: 1. Aspirin. 2. Fluticasone nasal spray. 3. Lactobacillus. 4. Losartan. 5. Sitagliptin. 6. Vancomycin 1250 mg every 8 hours. 7. Cefepime 1 g every 12 hours. ALLERGIES: To SHELLFISH. FAMILY HISTORY: No recurrent infections. 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 Lives in [place] with his . No silvana el. No sick contacts. No pets. REVIEW OF SYSTEMS: All negative, except as noted above, to a 14-point review of systems. PHYSICAL EXAM: In general, he is awake, not in distress. Neurologic: He is oriented x3, follows a ll commands, moves all extremities. There is decrease sensation to light touch in both feet. HEENT: There is no conjunctival hemorrhage. Oropharynx is without lesions. Neck is supple without mass. Heart has regular rate and rhythm without murmurs, rubs or gallops. Lungs are clear to auscultation bilaterally. Abdomen: Soft, nontender, nondistended. There is bowel sounds present. Skin: There are no rashes or splinter hemorrhages. Musculoskeletal: No spine tenderness to palpation. Left jhon t, there is diffuse enlargement of the great toe with trace edema through the foot, ankle and lower l egs without crepitans or fluctuance. There is erythema in the great toe. There is a plantar about 2 mm ulceration with surrounding small area of callus. No expressible fluid. There is no tenderness to palpation. There are 2+ dorsalis pedis pulses bilaterally. LABORATORY DATA: White blood cell count 5, hemoglobin 14, platelets 239. Creatinine 0.7. Please see impressions and recommendations as outlined above. Thanks for asking me to see Mr. Motley in consultation. [id number]/[facility] #: [id number]
[2018-05-11] MEDS: Losartan TAB* 25 MG PO SCH (17:42)
[2018-05-11] MEDS: SITAGLIPTIN 100 MG PO SCH (17:42)
[2018-05-11] MEDS ORDERED: Vancomycin Trough Check NOTE FOLLOW UP ONE (19:30)
[2018-05-11] MEDS ORDERED: Vancomycin(*) 1,000 MG in NS 0.9% 250 ML* 250 ML IVPB SCH (22:46)
[2018-05-11] MEDS ORDERED: Ibuprofen TAB* 800 MG PO ONE ×2 (23:40→23:43)
[2018-05-12] MEDS: Vancomycin(*) 1,000 MG in NS 0.9% 250 ML* 250 ML IVPB SCH ×3 (04:54→19:44)
[2018-05-12 05:11] LABS: ABS Basophils 0 10^3/ul (0-0.2); ABS Eosinophils 0.2 10^3/ul (0-0.6); ABS Lymphocytes 1.2 10^3/ul (1.0-4.8); ABS Monocytes 0.5 10^3/ul (0-0.8); ABS Neutrophils 2.4 10^3/ul (1.5-7.7); ABS Nucleated RBC 0 10^3/ul; Hematocrit 39 % (42-52); Hemoglobin 13.8 g/dl (14.0-18.0); Lymphocyte % 26.8 % (25-47); Mean Corpuscular HGB Conc 35 g/dl (31-36); Mean Corpuscular Hemoglobin 31 pg (27-31); Mean Corpuscular Volume 88 fL (80-94); Mean Platelet Volume 8.5 um3 (7.4-10.4); Nucleated Red Blood Cells % 0.1; Platelet Count 191 10^3/ul (150-450); Red Blood Count 4.44 10^6/ul (4.00-5.40); Red Cell Distribution Width 13 % (10.5-15); White Blood Count 4.4 10^3/ul (3.5-10.8)
[2018-05-12 05:21] LABS: EGFR Non-African American 95.5 (>60)
[2018-05-12] MEDS: Heparin VIAL(*) 5000 UNITS/ML VIAL (FIVE THOUSAND) SUBCUT SCH ×3 (06:40→21:37)
[2018-05-12] MEDS: Magnesium Oxide TAB* 400 MG PO SCH ×2 (08:47→20:26)
[2018-05-12] MEDS: Lactobacillus Acidophilus* 1 TAB PO SCH (08:47)
[2018-05-12] MEDS: Insulin LISPRO* 1 UNITS UNIT SUBCUT SCH ×4 (08:47→20:26)
[2018-05-12] MEDS: Aspirin EC TAB* 81 MG TAB.EC PO SCH (08:47)
--- NOTE | 2018-05-12 10:49 | PN ---
Subjective Date of Service: 05/12/18 Interval History: Patient has no complaints except for a frontal headache which is mild, initially responded to ibuprofen but then began to recur. Patient does not have a history of frequent headaches and denies any other upper respiratory symptoms. Patient denies F/C, N/V, abdominal pain, dysuria, CP, SOB, Increased pain in foot, or other pain. Family History: Unchanged from Admission Social History: Unchanged from Admission Past Medical History: Unchanged from Admission Objective Active Medications: Aspirin (Aspirin Ec Tab*) 81 mg PO DAILY [facility] Last Admin: 05/12/18 08:47 Dose: 81 mg Dextrose (D50w Syringe 50 Ml*) 12.5 gm IV PUSH .FOR FS < 60 - SS PRN PRN Reason: FS < 60 Fluticasone Propionate (Flonase Nasal [place] 50mcg*) 1 spray BOTH NARES DAILY PRN PRN Reason: NASAL CONGESTION Heparin Sodium (Porcine) (Heparin Vial(*)) 5,000 units SUBCUT Q8HR [facility] Last Admin: 05/12/18 06:40 Dose: 5,000 units Heparin Sodium (Porcine) (Heparin Flush Picc/Ml/Cvc(*)) 1 - 3 ml FLUSH 0600, 1800 [facility]; Protocol Last Admin: 05/12/18 06:43 Dose: 1 ml Vancomycin HCl 1,000 mg/ (Sodium Chloride) 250 mls @ 166.667 mls/hr IVPB Q8H [facility] Last Admin: 05/12/18 04:54 Dose: 166.667 mls/hr Ibuprofen (Motrin Tab*) 400 mg PO Q6H PRN PRN Reason: HEADACHE Insulin Human Lispro (Humalog*) 0 units SUBCUT ACHS [facility]; Protocol Last Admin: 05/12/18 08:47 Dose: 4 units Lactobacillus Rhamnosus (Lactobacillus Acidophilus*) 1 tab PO DAILY [facility] Last Admin: 05/12/18 08:47 Dose: 1 tab Losartan Potassium (Cozaar Tab*) 25 mg PO QPM [facility] Last Admin: 05/11/18 17:42 Dose: 25 mg Magnesium Oxide (Magox 400 Tab*) 400 mg PO BID [facility] Last Admin: 05/12/18 08:47 Dose: 400 mg Pharmacy Consult (Vancomycin Per Pharmacy*) 1 note FOLLOW UP . PRN PRN Reason: PER PROTOCOL Pharmacy Profile Note (Vancomycin Trough Check) 1 note FOLLOW UP 1130 ONE Stop: 05/13/18 11:31 Sitagliptin Phosphate (Januvia (Nf)) 100 mg PO QPM [facility]; Protocol Last Admin: 05/11/18 17:42 Dose: 100 mg Vital Signs - 8 hr 05/12/18 05/12/18 03:11 07:16 Temperature 97.9 F 98.1 F Pulse Rate 65 65 Respiratory 16 16 Rate Blood Pressure 128/77 140/79 (mmHg) O2 Sat by Pulse 96 95 Oximetry Oxygen Devices in Use Now: None Appearance: Patient is a 58yo male who appears stated age and is sitting in the bed in NAD. Eyes: No Scleral Icterus, PERRLA Ears/Nose/Mouth/Throat: NL Teeth, Lips, Gums, Clear Oropharnyx, Mucous Membranes Moist Neck: NL Appearance and Movements; NL JVP, Trachea Midline Respiratory: Symmetrical Chest Expansion and Respiratory Effort, Clear to Auscultation Cardiovascular: NL Sounds; No Murmurs; No JVD, RRR, No Edema Abdominal: NL Sounds; No Tenderness; No Distention, No Hepatosplenomegaly Lymphatic: No Cervical Adenopathy Extremities: No Edema, No Clubbing, Cyanosis, - - Left great toe swelling and erythema stable. Skin: No Nodules or Sclerosis Neurological: Alert and Oriented x 3, NL Sensation, NL Muscle Strength and Tone , - - CN II-XII intact. Result Diagrams: 05/12/18 04:50 05/12/18 04:50 Additional Lab and Data: Lab Results Microbiology and Other Data: Microbiology 05/10/18 17:02 Aerobic Blood Culture - Preliminary Blood Venous No Growth Day 1 Anaerobic Blood Culture - Preliminary No Growth Day 1 05/10/18 16:32 Aerobic Blood Culture - Preliminary Blood Venous No Growth Day 1 Anaerobic Blood Culture - Preliminary No Growth Day 1 Assess/Plan/Problems-Billing Assessment: Patient is a 58yo male with a PMH for DM II, neuropathy who presents with recurrent foot infection with MRI consistent with osteomyelitis who is currently on IV antibiotics. - Patient Problems (1) Osteomyelitis Current Visit: Yes Status: Acute Code(s): M86.9 - OSTEOMYELITIS, UNSPECIFIED SNOMED Code(s): 31189988 Comment: Appreciated ID consult. Start Daptomycin tomorrow pending insurance authorization. PICC line inserted. No signs of sepsis. Overlying wound and erythema improving in appearance per . Strong pulses on feet. (2) Diabetes Current Visit: Yes Status: Acute Code(s): E11.9 - TYPE 2 DIABETES MELLITUS WITHOUT COMPLICATIONS SNOMED Code(s): 93011398 Comment: [place], [place], Moderate control. Hemoglobin A1c 8.8. Will need treatment intensification through primary care provider. (3) DVT prophylaxis Current Visit: Yes Status: Acute Code(s): LMX3073 - SNOMED Code(s): 624903082 Comment: SCDs and Frequent ambulation. Low risk (4) Full code status Current Visit: Yes Status: Acute Code(s): Z78.9 - OTHER SPECIFIED HEALTH STATUS SNOMED Code(s): 963500020 Status and Disposition: Inpatient. Hopeful discharge tomorrow
[2018-05-12] MEDS: Losartan TAB* 25 MG PO SCH (17:46)
[2018-05-12] MEDS: SITAGLIPTIN 100 MG PO SCH (17:46)
[2018-05-12] MEDS: Ibuprofen TAB* 400 MG PO PRN (17:54)
[2018-05-12] MEDS ORDERED: Ibuprofen TAB* 400 MG PO ONE (20:29)
[2018-05-13] MEDS: Ibuprofen TAB* 400 MG PO PRN (03:38)
[2018-05-13] MEDS: Vancomycin(*) 1,000 MG in NS 0.9% 250 ML* 250 ML IVPB SCH (03:38)
[2018-05-13] MEDS: Heparin VIAL(*) 5000 UNITS/ML VIAL (FIVE THOUSAND) SUBCUT SCH (05:48)
[2018-05-13 06:13] LABS: EGFR Non-African American 112.5 (>60)
[2018-05-13] MEDS: Lactobacillus Acidophilus* 1 TAB PO SCH (08:27)
[2018-05-13] MEDS: Magnesium Oxide TAB* 400 MG PO SCH (08:27)
[2018-05-13] MEDS: Aspirin EC TAB* 81 MG TAB.EC PO SCH (08:27)
[2018-05-13] MEDS: Insulin LISPRO* 1 UNITS UNIT SUBCUT SCH ×2 (08:28→12:43)
[2018-05-13] MEDS ORDERED: NS 0.9% IVPB SCH (09:00)
[2018-05-13] MEDS ORDERED: DAPTOMYCIN IVPB SCH (09:00)
[2018-05-13] MEDS ORDERED: Vancomycin Trough Check NOTE FOLLOW UP ONE (11:30)
--- NOTE | 2018-05-13 11:38 | PN ---
Progress Note - Progress Note Date of Service: 05/13/18 SOAP: Subjective: CC: toe infection HPI: 58 year old man with acute osteo left great toe complicated by cellulitis, the redness and swelling in his foot are almost gone, the great toe is still red. Headache off and on yesterday pm and this am. None now. Appetite good. No fever, rash, or diarrhea. Objective: Vital Signs Temp 36.6 C 05/13/18 07:24 Pulse 75 05/13/18 07:24 Resp 16 05/13/18 08:00 BP 152/78 05/13/18 07:24 Pulse Ox 94 05/13/18 07:24 Intake & Output 05/12/18 05/13/18 05/13/18 18:59 06:59 18:59 Intake Total 100 2899 Output Total 225 1500 0 Balance -125 1399 0 Intake: IVPB 279 ABX - VANCOMYCIN 279 Oral 100 2620 Output: Urine 225 1500 0 Other: Estimated Void Large # Bowel Movements 0 # Voids 1 Gen:awake, no distress HEENT: no thrush Heart:RRR no murmur Lungs:CTA BL Abd:+BS NTND soft Skin: No rash MSK: L great toe diffuse mild erythema, non tender, 2 mm plantar callous Laboratory Results - last 24 hr 05/12/18 05/12/18 05/12/18 12:10 16:58 20:21 BUN Creatinine Est GFR ( Amer) Est GFR (Non-Af Amer) POC Glucose (mg/dL) 242 H 198 H 192 H 05/13/18 05/13/18 05:47 07:47 BUN 13 Creatinine 0.72 Est GFR ( Amer) 136.2 Est GFR (Non-Af Amer) 112.5 POC Glucose (mg/dL) 241 H Assessment: 1. acute osteomyelitis, non hematogenous, left great toe 2. cellulitis, improving 3. diabetes, T2 with neuropathy Plan: 1. daptomycin 800 mg iv daily with weekly cbc, cmp, crp, ck via RUE picc. FU with me next week. 35 minutes floor time >50% face to face discussing abx and side effects for which they will call including fever, rash, diarrhea. All questions answered.
[2018-05-13 11:57] VITALS: BP 138/75
--- NOTE | 2018-05-14 11:27 | DS ---
DISCHARGE SUMMARY: DATE OF ADMISSION: 05/10/18. DATE OF DISCHARGE: 05/13/18. PRIMARY CARE PROVIDER: Merrill Slade NP. MY ATTENDING WHILE IN THE HOSPITAL: Dr. Caprice Bennett.* (DICTATED BY SARAH MACIAS) CONSULTING INFECTIOUS DISEASE SPECIALIST: Dr. Lino Zavaleta. PRIMARY DISCHARGE DIAGNOSES: 1. Left great toe cellulitis and osteomyelitis. 2. Diabetes with diabetic nephropathy. 3. Retinopathy. SECONDARY DISCHARGE DIAGNOSIS: None. STUDIES DONE WHILE IN THE HOSPITAL: Chest x-ray from 05/10/18, read as no active cardiopulmonary disease. Electrocardiogram on 05/10/18, read as noemal sinus rhythm, left axis deviation and early repolarization in V2, V3. Prolonged MD interval, QTc of 418, rate of 88. Possible left atrial enlargement. No left ventricular hypertrophy. No signs of hypertrophy or enlargement. T-wave inversion in V3, T-wave flattening in aVF. No other significant abnormalities no prior studies to compare. MRI prior to admission read as diffuse T2 marrow edema and partial loss. Normal T1 bone marrow hyperintensity as well as enhancement of the distal phalanx of the great toe consistent with osteomyelitis given clinical context. No additional foci of osteomyelitis evident within the field of view. Diffuse superficial and deep soft tissue edema and corresponding hyperemia most consistent with cellulitis and myositis. No loculated soft tissue plain abscess collection evident. Negative for fracture or dislocation. Hammertoe deformities of the toe, greatest at the 4th toe. MEDICATIONS AT DISCHARGE: 1. Fluticasone 1 spray both nares daily as needed. 2. Ibuprofen 400 to 600 mg p.o. daily as needed. 4. Metformin 1000 mg p.o. b.i.d. 5. Magnesium oxide 400 mg p.o. b.i.d. 6. Losartan 25 mg p.o. q. p.m. 7. Aspirin 81 mg p.o. daily. 8. Januvia 100 mg p.o. q. p.m. 9. Daptomycin 800 mg IV q. 24 hours. 10. Heparin flush 1 to 3 mL flush b.i.d. 12. Lactobacillus acidophilus 1 tab p.o. daily. New medications at discharge: 1. Daptomycin. 2. Heparin flush. 3. Lactobacillus. HOSPITAL COURSE: This is a brief summary of the patient's presentation. For more details please see the history and physical from Dr. Caprice Bennett on 12/27. In brief, the patient is a 58-year-old male with a past medical history significant for the above, who has several episodes of soft tissue infection in his feet apparently treated by his service administrator; firstly treated with cephalexin with good result, then he was prescribed ciprofloxacin and clindamycin with mild improvement, but not complete resolution. An MRI of the lower extremity was read as above. The patient was going to be seen by Dr. Zavaleta of Infectious Disease as an outpatient, but was instead instructed to come to the emergency room for further evaluation, the patient had no signs of sepsis including fevers, chills, nausea or vomiting. The patient had no vital sign abnormalities. No fevers. No hypotension. No tachycardia. The patient was saturating well on room air. The patient had minimal pain in his foot. The patient was admitted to the hospital and seen in consultation by Dr. Lino Zavaleta, who recommended daptomycin 800 mg IV daily for 42 days. The patient received 3 days worth of vancomycin while he was in the hospital. The patient, except for development of a frontal headache with the vancomycin administration , had no other reactions, the patient was given his first dose of daptomycin on 05/13/18, which he tolerated well and was discharged to home with visiting nurse services as well as instructions on how to self administer daptomycin. The patient was instructed to follow up with Dr. Zavaleta. PHYSICAL EXAMINATION ON THE DAY OF DISCHARGE: General: The patient is a 58- year- old male, who appears as stated age and sitting comfortably in bed, in no acute distress. Vital Signs: At the time of evaluation, temperature 98.5, pulse rate 66, respiratory rate 16, oxygen saturation 97% on room air, and blood pressure 130/ 75. HEENT: Head normocephalic and atraumatic. Sclerae anicteric. No conjunctival injection. Oral mucosa is moist. No evidence of pharyngeal erythema, discharge , or exudate. Neck: Supple and nontender. No lymphadenopathy. No carotid bruits auscultated. No JVD. Cardiac: Regular rate and rhythm. No clicks, murmurs, gallops or rubs. Pulses 2+ in bilateral dorsalis pedis, posterior tibialis, and radial areas. No bilateral lower extremity edema noted. Respiratory: Clear to auscultation bilaterally. No wheezes or rhonchi. Good air exchange bilaterally. Abdomen: Soft, nontender, and nondistended. Bowel sounds present, normoactive in all 4 quadrants. No hepatosplenomegaly. No abdominal bruits auscultated. No hepatojugular reflux. Genitourinary: No suprapubic or CVA tenderness. Skin: Approximately 1 cm round open area on the plantar aspect of the left great toe with surrounding erythema significantly decreased from previous exam. No other rashes. Neuro: Cranial nerves II through XII intact. No focal deficits. Alert and oriented x3. Psychiatric: Pleasant and cooperative. DISCHARGE PLAN: The patient will be discharged to home to complete 41 additional days of daptomycin. The patient will follow up with Dr. Zavaleta and have weekly CBC, CMP, CK, and CRP levels drawn. This will be arranged through Dr. Zavaleta's office. The patient will follow up with Dr. Zavaleta within 1 week. The patient should follow up with his primary care provider in 1 week and discuss the control of his diabetes, which was suboptimal with a hemoglobin A1c of 8.8. The patient should have a consistent carbohydrate diet and engage in activity as tolerated, keeping his legs elevated as much as possible to facilitate wound healing. The patient should return to the hospital for alarming symptoms such as chest pain, shortness of breath, severe fevers or chills. TIME SPENT: Approximately, 60 minutes was spent on this discharge, 30 of which was spent [id number] with the patient, obtaining history and physical and discussing treatment plan. SARAH MACIAS [id number] #: [id number]
== END 2018-05-13 12:55 | disposition home health service (06) | DRG 344 ==
LOC: ED 16:08 → SSU 17:05
PROVIDERS: ADMIT Internal Medicine; ATTEND Internal Medicine
PROC: 02HV33Z Insertion of Infusion Device into Superior Vena Cava, Percutaneous Approach (ICD-10-PCS; principal; 2018-05-10)
DX: E11.69 Type 2 diabetes mellitus with other specified complication (principal); E87.2 Acidosis; M86.172 Other acute osteomyelitis, left ankle and foot; L03.032 Cellulitis of left toe; E11.319 Type 2 diabetes mellitus with unspecified diabetic retinopathy without macular edema; E11.42 Type 2 diabetes mellitus with diabetic polyneuropathy; E66.9 Obesity, unspecified; Z91.013 Allergy to seafood; G44.40 Drug-induced headache, not elsewhere classified, not intractable; T39.315A Adverse effect of propionic acid derivatives, initial encounter; Z72.89 Other problems related to lifestyle; Z79.82 Long term (current) use of aspirin; Z79.01 Long term (current) use of anticoagulants; Z79.84 Long term (current) use of oral hypoglycemic drugs; Z68.30 Body mass index [BMI] 30.0-30.9, adult
CPT/HCPCS: 36415; 71045; 80048; 80053; 80202; 81003; 81015; 82565; 83036; 83605; 84520; 85025; 85610; 85652; 85730; 86140; 87040; 93005; 99284; A9270-GY; C1751; J0692; J0878; J1644; J3370

== ENCOUNTER 2019-05-07 21:01 | Emergency (ER) | payer BC, OTHER ==
[2019-05-07 21:08] VITALS: BP 125/84
--- NOTE | 2019-05-07 22:43 | ED ---
Upper Extremity Pain - HPI Summary HPI Summary: Patient complains of right wrist pain and swelling starting today. Patient was attempting to hand cuff a resisting individual when he felt a pop in his wrist. Denies any other pain injury or symptoms. - History of Current Complaint Chief Complaint: EDExtremityUpper Stated Complaint: WRIST INJURY PER PT Time Seen by Provider: 05/07/19 21:55 Hx Obtained From: Patient Mechanism Of Injury: Other Onset/Duration: Started Hours Ago Timing: Constant Severity Initially: Moderate Severity Currently: Moderate Pain Location: Wrist Character: Aching Aggravating Factor(s): Movement Alleviating Factor(s): Nothing Associated Signs & Symptoms: Positive: Swelling - Allergies/Home Medications Allergies/Adverse Reactions: Allergies Allergy/AdvReac Type Severity Reaction Status Date / Time shellfish derived Allergy Difficulty Verified 05/07/19 21:07 Breathing POWDER IN LATEX GLOVES Allergy SKIN Uncoded 05/07/19 21:07 IRRITATION PMH/Surg Hx/FS Hx/Imm Hx Endocrine/Hematology History: Reports: Hx Diabetes - TYPE II- ON ORAL MEDICATION FOR Cardiovascular History: Denies: Hx Hypercholesterolemia, Hx Hypertension, Hx Pacemaker/ICD, Hx Peripheral Vascular Disease, Other Cardiovascular Problems/Disorders Respiratory History: Denies: Other Respiratory Problems/Disorders GI History: Denies: Other GI Disorders History: Denies: Hx Renal Disease Musculoskeletal History: Reports: Hx Orthopedic Injury - both shoulders worked on, tri-malleus in left ankle Denies: Hx Arthritis, Hx Rheumatoid Arthritis, Hx Back Problems, Hx Bursitis , Hx Congenital Bone Abnormalities, Hx Fibromyalgia, Hx Gout, Hx Osteoporosis, Hx Tendonitis, Other Musculoskeletal History Sensory History: Reports: Hx Contacts or Glasses Denies: Hx Cataracts, Hx Eye Injury, Hx Eye Prosthesis, Hx Glaucoma, Hx Legally Blind, Hx Macular Degeneration, Hx Vision Problem, Hx Deafness, Hx Hearing Aid, Hx Hearing Problem, Other Sensory Impairments Opthamlomology History: Reports: Hx Contacts or Glasses Denies: Hx Cataracts, Hx Eye Injury, Hx Eye Prosthesis, Hx Glaucoma, Hx Legally Blind, Hx Macular Degeneration, Hx Vision Problem, Other Sensory Impairments Neurological History: Denies: Hx Headaches, Hx Seizures, Hx Transient Ischemic Attacks (TIA), Other Neuro Impairments/Disorders Psychiatric History: Denies: Hx Anxiety, Hx Depression, Hx Panic Disorder - Surgical History Surgery Procedure, Year, and Place: LEFT ankle fracture [place]PAIR [place] [facility] [place] LEFT lazy eye-10 YEARS [id number] MUSCLES. HEMORRHOID SURGERY- 20 YEARS AGO. LEFT SHOULDER SCOPING 04/27/15 [facility]-LEFT SHOULDER SURGERY 01/26/16. RIGHT SHOULDER SURGERY. All wisdom teeth removed 20 + years ago. [place] [facility] [place] Hx Anesthesia Reactions: Yes - long time to wake up Infectious Disease History: Yes Infectious Disease History: Denies: Traveled Outside the [place] in Last 30 Days - Family History Known Family History: Positive: Other - Pt denies any relevant family history. - Social History Alcohol Use: Rare Alcohol Amount: "A couple times a month," a couple 12 oz beers Hx Substance Use: No Substance Use Type: Reports: None Hx Tobacco Use: No Smoking Status (MU): Never Smoked Tobacco Review of Systems Constitutional: Negative Eyes: Negative ENT: Negative Cardiovascular: Negative Respiratory: Negative Gastrointestinal: Negative Genitourinary: Negative Musculoskeletal: Other Skin: Negative Neurological: Negative Psychological: Normal All Other Systems Reviewed And Are Negative: Yes Physical Exam - Summary Physical Exam Summary: Full range of motion of right wrist. PMS intact distally. No snuffbox tenderness. Mild swelling 5 cm proximal to right wrist on medial forearm. Mildly tender to palpation. Triage Information Reviewed: Yes Vital Signs On Initial Exam: Initial Vitals Temp Pulse Resp BP Pulse Ox 96.9 F 94 20 125/84 97 05/07/19 21:05 05/07/19 21:05 05/07/19 21:05 05/07/19 21:05 05/07/19 21:05 Vital Signs Reviewed: Yes Appearance: Positive: Well-Appearing Skin: Positive: Warm Head/Face: Positive: Normal Head/Face Inspection Eyes: Positive: Normal Neck: Positive: Supple Respiratory/Lung Sounds: Positive: Clear to Auscultation Cardiovascular: Positive: Normal Abdomen Description: Positive: Nontender Musculoskeletal: Positive: Normal Neurological: Positive: Normal Psychiatric: Positive: Normal AVPU Assessment: Alert - [place] Coma Scale Best Eye Response: 4 - Spontaneous Best Motor Response: 6 - Obeys Commands Best Verbal Response: 5 - Oriented Coma Scale Total: 15 Diagnostics - Vital Signs Vital Signs Temp Pulse Resp BP Pulse Ox 05/07/19 21:05 96.9 F 94 20 125/84 97 - Laboratory Lab Statement: Any lab studies that have been ordered have been reviewed, and results considered in the medical decision making process. Course/Dx - Course Course Of Treatment: Patient complains of right wrist pain and swelling starting today. Patient was attempting to hand cuff a resisting individual when he felt a pop in his wrist. Denies any other pain injury or symptoms. Physical exam:Full range of motion of right wrist. PMS intact distally. No snuffbox tenderness. Mild swelling 5 cm proximal to right wrist on medial forearm. Mildly tender to palpation. Vital signs within normal limits. X-ray negative for fracture or dislocation. Prefab wrist brace applied to support wrist while healing. Follow-up with orthopedics if symptoms persist more than 1 week. sprain - Diagnoses Provider Diagnoses: Right wrist sprain Discharge - Sign-Out/Discharge Documenting (check all that apply): Patient Departure Patient Received Moderate/Deep Sedation with Procedure: No - Discharge Plan Condition: Stable Disposition: HOME Patient Education Materials: Wrist Sprain (ED) Forms: *Work Release Referrals: Merrill Slade NP [Primary Care Provider] - Luis Antonio Amador MD [Medical Doctor] - Additional Instructions: Ice, rest, ibuprofen for right wrist pain. If symptoms persist more than a week follow-up with orthopedics Dr. Blount for further evaluation. Return to the ED for any new or worsening symptoms. - Billing Disposition and Condition Condition: STABLE Disposition: Home
== END 2019-05-07 23:10 | disposition home or self-care (01) ==
LOC: ED 21:01
DX: S63.501A Unspecified sprain of right wrist, initial encounter (principal); X50.9XXA Other and unspecified overexertion or strenuous movements or postures, initial encounter; Y99.0 Civilian activity done for income or pay; E11.9 Type 2 diabetes mellitus without complications; Z79.84 Long term (current) use of oral hypoglycemic drugs
CPT/HCPCS: 99282

== ENCOUNTER 2019-07-11 10:58 | Emergency (ER) | payer BC ==
--- OUTSIDE RECORDS SUMMARY | 2019-07-11 11:31 | XMS REPORT | Continuity of Care Document ---
:1960 External Reference #:[id number] Author Name Christa Mendoza M.D. (transmitted by agent of provider Ken Jackson) Address [address] [place] [address] Care Team Providers Name Role Phone Lucie Garcia MD - Internal Care Team Information Licensed Esthetician Medicine Problems Active Problems Provider Date Disorder of bursa of shoulder region Romie Estrada M.D. Onset: 05/07/2015 Shoulder joint pain Romie Estrada M.D. Onset: 07/23/2015 Strain of unspecified muscle, fascia and tendon Romie Estrada M.D. Onset: at shoulder and upper arm level, left arm, subsequent encounter Type 2 diabetes mellitus Merrill Slade NP Onset: 09/13/2015 Sprain of shoulder and upper arm Mason Adhikari MD Onset: 10/10/2015 Disorder of shoulder Mason Adhikari MD Onset: 05/02/2016 Localized, secondary osteoarthritis of the Mason Adhikari MD Onset: 05/02/2016 shoulder region Strain of muscle(s) and tendon(s) of the rotator Mason Adhikari MD Onset: cuff of left shoulder, subsequent encounter Bicipital tenosynovitis Mason Adhikari MD Onset: 11/10/2017 Developmental dislocation of joint of shoulder Mason Adhikari MD Onset: 2017 region Shoulder stiff Mason Adhikari MD Onset: 07/08/2018 Social History Type Date Description Comments Sex Unknown ETOH Use Drinks 3 Alcoholic Beverages Per Week Tobacco Use Start: Unknown Patient has never smoked Recreational Drug Use Denies Drug Use Smoking Status Reviewed: 06/22/19 Patient has never smoked Exercise Type/Frequency Exercises regularly Allergies, Adverse Reactions, Alerts Active Allergies Reaction Severity Comments Date Shellfish-derived Products 05/29/2015 Inactive Allergies NKDA 06/30/2016 Medications Active Medications SIG Qnty Indications Ordering Date Provider Trulicity Inject 0.5ML (1 2units E11.628 Merrill Slade NP 01/10/2019 Pen) Under The 0.75mg/0.5ML Skin Once Weekly Solution Pen-Inject Blood Glucose check blood sugar 1units E11.40 Merrill Slade NP 05/24/2018 Monitoring System up to 4 times daily W/Device Kit Glucose Meter Test for use 3-4 times 100units E11.40 Merrill Slade NP 2017 Strips Advanced daily Strips Lancets use 3-4 times 270units E11.40 Merrill Slade NP 05/24/2018 Misc daily and as needed Alcohol Pads For use when 120units E11.40 Merrill Slade NP 05/24/2018 70% Pads checking blood glucose 3-4 times daily Magnesium Oxide 1 by mouth twice 180caps E83.42 Mustapha Sullivan, 2016 400mg daily DO FACC Capsules Aspirin Low Dose 1 by mouth every 100tabs E11.9 Mustapha Sullivan, 2016 81mg day DO FACC Tablets DR Heard take one tablet 90tabs E11.65 Merrill Slade NP 03/24/2016 100mg Tablets by mouth every day Metformin HCL ER take one tablet 180tabs E11.65 Merrill Slade NP 12/14/2015 (Osm) by mouth twice a 1000mg Tablets day ER 24HR Fluticasone 2 sprays each 16units Merrill Slade NP 07/09/2015 Propionate nostril qd.as 50mcg/Act needed Suspension Ibuprofen 2 tabs as needed Unknown 200mg Medications Administered in Office Medication SIG Qnty Indications Ordering Provider Date Depomedrol 40MG Christa Mendoza M.D. 05/23/2019 Injection Technetium TC 99M Mustapha Sullivan, DO FACC 06/16/2017 Tetrofosmin, Per Unit Dose Up To 40 Millicuries Injection Triamcinolone (Kenalog) Mason Adhikari MD 12/02/2016 Injection Triamcinolone (Kenalog) Mason Adhikari MD 05/02/2016 Injection Depomedrol 80MG Romie Estrada M.D. 07/23/2015 Injection Celestone 3 mg and 3mg Ashlie Dang, 04/24/2015 Injection Mirlande Depomedrol 80MG Romie Estrada M.D. 09/05/2014 Injection Immunizations CPT Code Status Date Vaccine Reaction Lot # [id number] Given 09/21/2018 Influenza Virus Vaccine, No immmediate reaction [id number] Quadrivalent, Split, noted. Preservative Free 54549 Given 08/11/2017 Influenza Virus Vaccine, No immediate [id number] Quadrivalent, Split, reaction..jh Preservative Free 90877 Given 09/30/2016 Pneumonia Vaccine no immediate reaction [id number] noted ... 37370 Given 09/30/2016 Influ Virus Vaccine, no immediate reaction [id number] Quadrivalent, Split Virus, noted ... [place] [address] Given 09/06/2015 Influenza Virus Vaccine, Quadrivalent, Split, Preservative Free Vital Signs Date Vital Result Comment 06/22/2019 1:47pm Height 73 inches 6'1" Weight 234.00 lb Heart Rate 92 /min BP Systolic 142 mmHg BP Diastolic 78 mmHg Body Temperature 97.8 F Pain Level 1 BMI (Body Mass Index) 30.9 kg/m2 05/23/2019 2:50pm Height 73 inches 6'1" Weight 234.00 lb BP Systolic 124 mmHg BP Diastolic 72 mmHg Respiratory Rate 16 /min Body Temperature 97.8 F Pain Level 2 BMI (Body Mass Index) 30.9 kg/m2 Results Test Date Facility Test Result H/L Range Note Laboratory test 04/19/2019 [facility] House Hemoglobin A1c 6.9 5-7 finding Urine Microalbumin 01/10/2019 [facility] Ur Microalbumin 282.[address] (mg/L) [place] [address] [phone] Urine Creatinine 185.82 mg/dL Urine Microalbumin/Creatinine 151.9 High <31 Laboratory test finding 01/10/2019 [facility] House Hemoglobin A1c 8.4 High 5 -7 Procedures Date Code Description Status 05/23/2019 16333 Inject Tendon Sheath Or Ligament Aponeurosis Eg Completed Plantar Fascia 05/06/2019 097585686 Diabetic Retinal Eye Exam Completed 03/04/2019 113998389 Diabetic Retinal Eye Exam Completed 12/30/2018 301016352 Diabetic Retinal Eye Exam Completed 10/19/2018 [id number] Diabetic Retinal Eye Exam Completed 06/02/2018 052570005 Diabetic Retinal Eye Exam Completed 05/31/2018 406249584 Diabetic Retinal Eye Exam Completed 05/27/2018 818502556 Diabetic Retinal Eye Exam Completed 05/10/2018 125970364 Diabetic Foot Exam Completed 05/03/2018 768430465 Diabetic Foot Exam Completed 02/15/2018 059850975 Diabetic Retinal Eye Exam Completed 12/07/2017 633621935 Diabetic Retinal Eye Exam Completed 07/20/2017 [id number] Diabetic Retinal Eye Exam Completed 06/22/2017 771724854 Diabetic Retinal Eye Exam Completed 08/01/2015 [id number] Diabetic Retinal Eye Exam Completed 06/07/2015 168243267 Diabetic Foot Exam Completed 11/09/2011 [id number] Colonoscopy Completed Medical Devices Description No Information Available Encounters Type Date Location Provider Dx Diagnosis Office Visit 05/23/2019 Orthopedic Christa Mendoza M65.4 Radial styloid 2:15p Services Of [place] tenosynovitis [de C.M.A. Quervain] Office Visit 04/19/2019 [facility] Internal Merrill Slade NP Z79.84 penitentiary ( current) 9:20a Medicine - [facility] use of oral hypoglycemic drugs E11.40 Type 2 diabetes mellitus with diabetic neuropathy, unsp E78.5 Hyperlipidemia, unspecified Office Visit 01/11/2019 9:00a Orthopedic Mason Adhikari, M24.811 Oth specific joint Services Of derangements of C.M.A. 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 shoulder, not trauma Assessments Date Code Description Provider 06/22/2019 M65.4 Radial styloid tenosynovitis [de Quervain] Christa Mendoza M.D. 05/23/2019 M65.4 Radial styloid tenosynovitis [de Quervain] Christa Mendoza M.D. 04/19/2019 Z79.84 penitentiary (current) use of oral hypoglycemic Merrill Slade NP drugs 04/19/2019 E11.40 Type 2 diabetes mellitus with diabetic Merrill Slade NP neuropathy, unsp 04/19/2019 E78.5 Hyperlipidemia, unspecified Merrill Slade NP 01/11/2019 M24.811 Other specific joint derangements of right Mason Adhikari MD shoulder, not els 01/11/2019 M25.611 Stiffness of right shoulder, not elsewhere Mason Adhikari MD classified 01/10/2019 E11.628 Type 2 diabetes mellitus with other skin Merrill Slade NP complications 12/28/2018 M75.102 Unspecified rotator cuff tear or rupture of Mason Adhikari MD left shoulder, n Plan of Treatment Future Appointment(s):10/19/2019 9:00 am - [facility] Christa Mendoza M.D.M65.4 Radial styloid tenosynovitis [de Quervain]Follow up:Follow up: As needed Functional Status Description No Information Available Mental Status Description No Information Available Referrals Description No Information Available
[2019-07-11 11:37] VITALS: BP 141/90
--- NOTE | 2019-07-11 12:02 | UC ---
Skin Complaint HPI - HPI Summary HPI Summary: 59 yo male presents accompanied by spouse with complaints of right toe wound. He is diabetic and has a history of LEFT foot osteo that required a PICC line and extensive hospitalization about 7-8 months ago. This morning his spouse noticed a wound on the lateral aspect of the 4th right toe. Pt unsure how long it has been there. Has mild tenderness to the area. Denies fever, chills. Glucose has been well controlled between 90-116 over the last few days. He does follow with ID for his foot wounds. - History of Current Complaint Chief Complaint: UCWounds Time Seen by Provider: 07/11/19 12:01 Stated Complaint: WOUND ON FOOT Hx Obtained From: Patient, Family/School Director Onset/Duration: Sudden Onset Onset Severity: Mild Current Severity: Mild Pain Intensity: 1 Pain Scale Used: 0-10 Numeric - Allergy/Home Medications Allergies/Adverse Reactions: Allergies Allergy/AdvReac Type Severity Reaction Status Date / Time shellfish derived Allergy Difficulty Verified 07/11/19 11:37 Breathing POWDER IN LATEX GLOVES Allergy SKIN Uncoded 07/11/19 11:37 IRRITATION Home Medications: Home Medications Dulaglutide [Trulicity] 0.75 mg SQ 07/11/19 [History] PMH/Surg Hx/FS Hx/Imm Hx Endocrine History: Diabetes Cardiovascular History: Hypertension - Surgical History Surgical History: Yes Surgery Procedure, Year, and Place: LEFT ankle fracture REPA[place] [facility] [place] lazy [place]-10 YEARS [id number] MUSCLES. HEMORRHOID SURGERY- 20 YEARS AGO. LEFT SHOULDER SCOPING 04/27/15 [facility]-LEFT SHOULDER SURGERY 01/26/16. RIGHT SHOULDER SURGERY. All wisdom teeth removed 20 + years ago. [place] finger[place] [facility] [place] - Family History Known Family History: Positive: Other - Pt denies any relevant family history. - Social History Lives: With Family Alcohol Use: Occasionally Alcohol Amount: "A couple times a month," a couple 12 oz beers Substance Use Type: None Smoking Status (MU): Never Smoked Tobacco - Immunization History Most Recent Influenza Vaccination: Fall 2016 Most Recent Tetanus Shot: 03/2013 Most Recent Pneumonia Vaccination: 2016 Review of Systems All Other Systems Reviewed And Are Negative: No Constitutional: Positive: Negative Skin: Positive: Other - Right toe wound Respiratory: Positive: Negative Cardiovascular: Positive: Negative Neurovascular: Positive: Negative Musculoskeletal: Positive: Negative Neurological: Positive: Negative Psychological: Positive: Negative Physical Exam - Summary Physical Exam Summary: GENERAL: NAD. WDWN. No pain distress. SKIN: RIGHT 4th toe: lateral aspect with 8mm superficial open wound. Slight tenderness. Mild erythema to the dorsal aspect of the toe. No drainage, streaking, or necrotic tissue. CHEST: No accessory muscle use. Breathing comfortably and in no distress. CV: Pulses intact. Cap refill <2seconds MSK: FROM all toes right foot NEURO: Alert. PSYCH: Age appropriate behavior. Triage Information Reviewed: Yes Vital Signs: Initial Vital Signs Temp 97.5 F 07/11/19 11:33 Pulse 86 07/11/19 11:33 Resp 18 07/11/19 11:33 BP 141/90 07/11/19 11:33 Pulse Ox 98 07/11/19 11:33 Vital Signs Reviewed: Yes Course/Dx - Course Course Of Treatment: Culture obtained from the site. He had a wound to the right 5th toe 2 years ago and culture grew out staph resistant to PCN - therefore will place him on clindamycin and bactroban ointment at this time. Wound was dressed with anbx ointment and telfa. Daily dressing changes. Advised to f/u with ID regarding culture results. - Diagnoses Provider Diagnosis: Open wound of fourth toe of right foot Discharge ED - Sign-Out/Discharge Documenting (check all that apply): Patient Departure All imaging exams completed and their final reports reviewed: No Studies - Discharge Plan Condition: Stable Disposition: HOME Prescriptions: Clindamycin HCl 300 mg PO TID #21 capsule Mupirocin 2% OINT* [Bactroban 2 % Oint*] 1 applic TOPICAL BID #1 tube Patient Education Materials: Chronic Wounds (ED) Referrals: Merrill Slade, ARMOND [Primary Care Provider] - Waqar GARCIA,Lino Hernandez [Medical Doctor] - Additional Instructions: If you develop a fever, shortness of breath, chest pain, new or worsening symptoms - please call your PCP or go to the ED immediately. Your blood pressure was high at todays visit. Please see your primary provider within 4 weeks for recheck and re-evaluation. Please change the dressing daily. Please follow up with Dr. Zavaleta given your history of wound infections - Billing Disposition and Condition Condition: STABLE Disposition: Home - Attestation Statements Provider Attestation: Per institutional requirements, I have reviewed the chart, however, I was not consulted specifically or made aware of this patient by the midlevel provider. I did not personally evaluate, interact with , or disposition this patient.
--- NOTE | 2019-07-15 11:02 | UC ---
- Progress Note Progress Note: RN to call pt. Wound cx results + S aureus, Tika cooper. Was referred to [facility], per avs instructions. Encourage f/u ID as recommended, and f/u with PCP as well. Continue abx as prescribed unless o/w advised by ID or PCP. Course/Dx - Diagnoses Provider Diagnoses: Open wound of fourth toe of right foot Discharge ED - Sign-Out/Discharge Documenting (check all that apply): Post-Discharge Follow Up All imaging exams completed and their final reports reviewed: No Studies - Discharge Plan Condition: Stable Disposition: HOME Prescriptions: Clindamycin HCl 300 mg PO TID #21 capsule Mupirocin 2% OINT* [Bactroban 2 % Oint*] 1 applic TOPICAL BID #1 tube Patient Education Materials: Chronic Wounds (ED) Referrals: Waqar GARCIA,Lino Hernandez [Medical Doctor] - Merrill Slade NP [Primary Care Provider] - Additional Instructions: If you develop a fever, shortness of breath, chest pain, new or worsening symptoms - please call your PCP or go to the ED immediately. Your blood pressure was high at todays visit. Please see your primary provider within 4 weeks for recheck and re-evaluation. Please change the dressing daily. Please follow up with Dr. Zavaleta given your history of wound infections - Billing Disposition and Condition Condition: STABLE Disposition: Home
== END 2019-07-11 12:37 | disposition home or self-care (01) ==
LOC: UCEAST 10:58
DX: S91.104A Unspecified open wound of right lesser toe(s) without damage to nail, initial encounter (principal); X58.XXXA Exposure to other specified factors, initial encounter; Y92.9 Unspecified place or not applicable; E11.9 Type 2 diabetes mellitus without complications; I10 Essential (primary) hypertension; Z91.040 Latex allergy status
CPT/HCPCS: 87070; 87076; 87077; 87186; 87205; 87640; 87641; 99212; G0463

== ENCOUNTER 2020-01-04 17:56 | Emergency (ER) | payer BC ==
--- OUTSIDE RECORDS SUMMARY | 2020-01-04 18:09 | XMS REPORT | Continuity of Care Document ---
:1960 External Reference #:[id number] Author Name Merrill Slade NP (transmitted by agent of provider Lorraine Giordano) Address [address] [facility], [address] [place] [id number] Care Team Providers Name Role Phone Lucie Garcia MD - Internal Care Team Information Mathematics Technician [phone] Medicine Problems Active Problems Provider Date Disorder [...] Use Denies Drug Use Smoking Status Reviewed: 12/23/19 Patient has never smoked Exercise Type/Frequency Exercises regularly Allergies, Adverse Reactions, Alerts Active Allergies Reaction Severity Comments Date Shellfish-derived Products 05/29/2015 Inactive Allergies NKDA 06/30/2016 Medications Active Medications SIG Qnty Indications Ordering Date Provider Amoxicillin/Clavulan take one tablet 20tabs J01.90 Merrill Slade NP 2019 ate Potassium q12 hours for 10 days 875-125mg Tablets Benzonatate one by mouth 30caps J01.90 Merrill Slade NP 12/23/2019 200mg three times daily Capsules as needed for cough Losartan Potassium take one tablet 90tabs Merrill Slade NP 06/29/2019 by mouth every 25mg Tablets day Trulicity Inject 0.5ML (1 2units E11.628 Merrill Slade NP 01/10/2019 Pen) Under The 0.75mg/0.5ML Skin Once Weekly Solution Pen-Inject Blood Glucose check blood sugar 1units E11.40 Merrill Slade NP 05/24/2018 Monitoring System up to 4 times daily W/Device Kit Glucose Meter Test for use 3-4 times 100units E11.40 Merirll Slade NP 2017 Strips Advanced daily Strips [...] Ibuprofen 2 tabs as needed Unknown 200mg Mupirocin apply once daily Unknown 2% Ointment History Medications Clindamycin HCL 1 tabs by 21caps E11.621 Lino Hernandez 07/15/2019 - 300mg mouth 3 times Mirlande Silva 07/28/2019 Capsules a day Clindamycin HCL 1 po tid 21caps Unknown 07/11/2019 - 300mg 07/15/2019 Capsules Medications Administered in Office Medication SIG Qnty Indications Ordering Provider Date Depomedrol 40MG Christa Crawford M.D. 05/23/2019 Injection Technetium TC 99M Mustapha Sullivan, [facility] 06/16/2017 Tetrofosmin, Per Unit Dose Up To 40 Millicuries Injection Triamcinolone (Kenalog) Mason Adhikari MD 12/02/2016 Injection Triamcinolone (Kenalog) Mason Adhikari MD 05/02/2016 Injection Depomedrol 80MG Romie Estrada M.D. 07/23/2015 Injection Celestone 3 mg and 3mg Ashlie Dang, 04/24/2015 Injection Mirlande Depomedrol 80MG Romie Estrada M.D. 09/05/2014 Injection Immunizations CPT Code Status Date Vaccine Reaction Lot # [id number] Given 10/26/2019 Influenza Virus Vaccine, No immediate reaction [id number] Quadrivalent ([id number]), Derived From Cell 81318 Given 09/21/2018 Influenza Virus Vaccine, No immmediate reaction [id number] Quadrivalent, Split, noted. Preservative Free 45074 Given 08/11/2017 Influenza Virus Vaccine, No immediate [id number] Quadrivalent, Split, reaction.. Preservative Free 54509 Given 09/30/2016 Pneumonia Vaccine no immediate reaction [id number] noted ... 92819 Given 09/30/2016 Influ Virus Vaccine, no immediate reaction [id number] Quadrivalent, Split Virus, noted ... [place] [address] Given 09/06/2015 Influenza Virus Vaccine, Quadrivalent, Split, Preservative Free Vital Signs Date Vital Result Comment 12/23/2019 2:25pm Height 73 inches 6'1" Weight 249.00 lb Heart Rate 100 /min BP Systolic Sitting 128 mmHg BP Diastolic Sitting 87 mmHg Body Temperature 96.5 F O2 % BldC Oximetry 96 % BMI (Body Mass Index) 32.8 kg/m2 10/26/2019 10:40am Height 73 inches 6'1" Weight 247.00 lb Heart Rate 89 /min BP Systolic 132 mmHg BP Diastolic 78 mmHg Body Temperature 97.2 F O2 % BldC Oximetry 97 % BMI (Body Mass Index) 32.6 kg/m2 Results Test Acquired Facility Test Result H/L Range Note Date Laboratory test 10/31/2019 [facility] PSA Screening 0.971 Normal 0-4.[address] ng/[place] [address] [phone] Testosterone 10/31/2019 [facility] Free 8.14 3.87-14. 2 Free & Total [address] Testosterone ng/dL 7 [place] [address] ng/dl [phone] Testosterone 509 ng/dL 240-950 3 Lipid Profile 10/25/2019 [facility] Triglycerides 117 mg/dL 4 (Trig/Chol/HDL) [address] [place], [place] [id number] [phone] Cholesterol 219 mg/dL 5 HDL Cholesterol 44.2 mg/dL 6 LDL Cholesterol 151 mg/dL 7 Comp Metabolic 10/25/2019 [facility] Sodium 136 mmol/L Normal 135-[address] [place] [address] [phone] Potassium 4.6 mmol/L Normal 3.5-5.0 Chloride 102 mmol/L Normal 101-111 Co2 Carbon Dioxide 27 mmol/L Normal 22-32 Anion Gap 7 mmol/L Normal 2-11 Glucose 131 mg/dL High 70-100 Blood Urea Nitrogen 14 mg/dL Normal 6-24 Creatinine 0.88 mg/dL Normal 0.67-1.17 BUN/Creatinine Ratio 15.9 Normal 8-20 Calcium 9.8 mg/dL Normal 8.6-10.3 Total Protein 7.3 g/dL Normal 6.4-8.9 Albumin 4.4 g/dL Normal 3.2-5.2 Globulin 2.9 g/dL Normal 2-4 Albumin/Globulin Ratio 1.5 Normal 1-3 Total Bilirubin 0.60 mg/dL Normal 0.2-1.0 Alkaline Phosphatase 54 U/L Normal 34-104 Alt 34 U/L Normal 7-52 Ast 33 U/L Normal 13-39 Egfr Non- 88.9 >60 Egfr 107.6 >60 8 Laboratory test 10/25/2019 [facility] Vitamin B12 231 pg/mL Normal 180-914 [address] [place] [address] [phone] Hemoglobin A1c (Glyco HGB) 7.1 % High 4.0-5.6 10 Magnesium 2.0 mg/dL Normal 1.9-2.7 PSA Screening 0.905 ng/mL Normal 0-4.000 11 Wound Culture/Sensi 07/11/2019 [facility] Wound/Misc SEE RESULT [address] [place] [address] Stain [phone] Laboratory test 07/11/2019 [facility] MRSA/S Aureus SEE RESULT [address] [place] [address] [phone] 1 Serum levels of PSA measured using the [employer] DXI Hybritech immunoassay should not be interpreted as absolute evidence of the presence or absence of disease. The PSA value should be used in conjunction with other pertinent clinical diagnostic procedures. The values obtained with different assay methods or kits cannot be used interchangeably. 2 ADDITIONAL INFORMATION Testing performed by [facility]. This test was developed and its performance characteristics determined by [facility] in a manner consistent with CLIA requirements. This test has not been cleared or approved by the U.S. Food and Drug Administration. 3 ADDITIONAL INFORMATION Testing performed by Liquid Chromatography-Tandem Mass Spectrometry (LC-MS/MS). This test was developed and its performance characteristics determined by [facility] in a manner consistent with CLIA requirements. This test has not been cleared or approved by the U.S. Food and Drug Administration. Test Performed by: [facility] [address] [place] [address] Stretcher And Drier: Lalo Hall M.D. Ph.D.; CLIA# [id number] 4 Desirable: <150 Borderline High: 150-199 High: 200-499 Very High: >500 5 Desirable: <200 Borderline High: 200-239 High: >239 6 Low: <40 Desirable: 40-60 High: >60 7 Desirable: <100 Near Optimal: 100-129 Borderline High: 130-159 High: 160-189 Very High: >189 8 Because ethnic data is not always readily available, this report includes an eGFR for both -Americans and non- Americans. The National Kidney Disease Education Program (NKDEP) does not endorse the use of the MDRD equation for patients that are not between the ages of 18 and 70, are , have extremes of body size, muscle mass, or nutritional status, or are non- or non-. According to the National Kidney Foundation, irrespective of diagnosis, the stage of the disease is based on the level of kidney function: Stage Description GFR(mL/min/1.73 m(2)) 1 Kidney damage with normal or decreased GFR 90 2 Kidney damage with mild decrease in GFR 60-89 3 Moderate decrease in GFR 30-59 4 Severe decrease in GFR 15-29 5 Kidney failure <15 (or dialysis) 9 Normal Range 180 to 914 Indeterminate Range 145 to 180 Deficient Range <145 10 Therapeutic target for the treatment of diabetes mellitus patients is <7% HBA1C, and in selective patients <6.0%. Please refer to [place] [employer] diabetic care guidelines for further information. 11 Serum levels of PSA measured using the [employer] [place] DXI Hybritech immunoassay should not be interpreted as absolute evidence of the presence or absence of disease. The PSA value should be used in conjunction with other pertinent clinical diagnostic procedures. The values obtained with different assay methods or kits cannot be used interchangeably. 12 SEE RESULT BELOW Name: TIN MOTLEY : [address]: Ke Durand MD Acct: [id number] Unit: [id number] AGE: 59 Location: [facility] Re07/11/19 SEX: M Status: DEP ER SPEC: [id number] OMAR: 07/11/19-[address] [facility] [address]: Gaurav SMITH REQ: [id number] RECD: 07/11/19 STATUS: ABDOULAYE SHANKS DR: [facility] Merrill Slade TIN FLOPPER _ SOURCE: FOOT,RIGHT SPDESC: ORDERED: MRSA/SA SSTI, Culture Stain Procedure Result Reported Site MRSA/S. aureus SSTI PCR PENDING Wound/Misc Gram Stain Final 07/11/19- 1509 ML 1+ Epithelial Cells No Neutrophils Observed 1+ Gram Positive Cocci Wound/Misc Culture PENDING * - Main Lab . END OF REPORT DEPARTMENT OF PATHOLOGY, [address] [place] [address] Valentin Quesada M.D. Director [facility] # [id number] 13 SEE RESULT BELOW Name: TIN MOTLEY : [address]: Ke Durand MD Acct: [id number] Unit: [id number] AGE: 59 Location: [facility] Re07/11/19 SEX: M Status: DEP ER SPEC: [id number] OMAR: 07/11/19-1225 [facility] [address]: Gaurav SMITH REQ: [id number] RECD: 07/11/19-744 STATUS: PAL SHANKS DR: [facility] Merrill Slade TIN FLOPPER _ SOURCE: FOOT,RIGHT SPDESC: ORDERED: MRSA/SA SSTI, Culture Stain COMMENTS: Verbal to [id number]([facility]) by [id number] at 1623 on 07/11/19. Results read back accurately. Procedure Result Reported Site MRSA/S. aureus SSTI PCR Final 07/11/19- 1619 ML Organism 1 MRSA NEGATIVE Organism 2 S.AUREUS POSITIVE Wound/Misc Gram Stain Final 07/11/19- 1509 ML 1+ Epithelial Cells No Neutrophils Observed 1+ Gram Positive Cocci Wound/Misc Culture Final 07/14/19- 0946 ML Organism 1 STAPHYLOCOCCUS AUREUS Quantity 1+ Organism 2 FINEGOLDIA MAGNA Quantity 1+ Organism 3 NORMAL LIBBY Quantity 1+ Anaerobic sensitivities are not routinely performed. Positive isolates will be saved for one week. Please call the Microbiology Laboratory if susceptibility testing is needed. CONTINUED ON NEXT PAGE DEPARTMENT OF PATHOLOGY, [address] [place] [address] Valentin Quesada M.D. Director [facility] # [id number] Patient: TIN MOTLEY [id number] (Continued) Specimen: [id number] Collected: 07/11/19 Received: 07/11/19-1355 (Continued) Procedure Result Reported Site Wound/Misc Culture Final (continued) 07/14/19- 945 1. STAPHYLOCOCCUS AUREUS M.I.C. RX --------- ------ Penicillin >=0.5 R Clindamycin <=0.25 S Erythromycin 0.5 S Gentamicin <=0.5 S Linezolid 2 S Oxacillin 0.5 S * Quinupristin/Dalfopristin 0.5 S Rifampin <=0.5 S Tetracycline <=1 S Doxycycline - Deduced S * Minocycline - Deduced S Trimethoprim/Sulfamethoxazole <=10 S Vancomycin 1 S Imipenem-Deduced S * Ampicillin/Sulbactam-Deduced S Cefazolin-Deduced S * These antibiotics are not available in the [facility] Formulary Contact the Microbiology Department for any additional antibiotic reporting. * ML - Main Lab . END OF REPORT DEPARTMENT OF PATHOLOGY, [address] [place] [address] Valentin Quesada M.D. Director [facility] # [id number] Procedures Date Code Description Status 07/05/2019 256191015 Diabetic Retinal Eye Exam Completed 05/06/2019 836934464 Diabetic Retinal Eye Exam Completed 03/04/2019 410956971 Diabetic Retinal Eye Exam Completed 12/30/2018 521504628 Diabetic Retinal Eye Exam Completed 10/19/2018 132485762 Diabetic Retinal Eye Exam Completed 06/02/2018 412954123 Diabetic Retinal Eye Exam Completed 05/31/2018 915571271 Diabetic Retinal Eye Exam Completed 05/27/2018 548584230 Diabetic Retinal Eye Exam Completed 05/10/2018 963422478 Diabetic Foot Exam Completed 05/03/2018 157153901 Diabetic Foot Exam Completed 02/15/2018 491306985 Diabetic Retinal Eye Exam Completed 12/07/2017 771577906 Diabetic Retinal Eye Exam Completed 07/20/2017 375495815 Diabetic Retinal Eye Exam Completed 06/22/2017 996219057 Diabetic Retinal Eye Exam Completed 08/01/2015 375422630 Diabetic Retinal Eye Exam Completed 06/07/2015 621288534 Diabetic Foot Exam Completed 11/09/2011 98346803 Colonoscopy Completed Medical Devices Description No Information Available Encounters Type Date Location Provider Dx Diagnosis Office Visit 10/26/2019 [facility] Internal Merrill Slade NP E11.40 Type 2 diabetes 10:40a Medicine - Ccmob mellitus with diabetic neuropathy, unsp E78.5 Hyperlipidemia, unspecified Z23 Encounter for immunization Office Visit 08/22/2019 [facility] Lino Hernandez E11.40 Type 2 diabetes 1:40p For Divya Silva M.D. 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 neuropathy, unspecified 07/29/2019 E11.621 Type 2 diabetes mellitus with foot ulcer Lino Silva M.D. 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 Restart the fluticasone and use that for at least two weeks. Functional Status Description No Information Available Mental Status Description No Information Available Referrals Refer to Reason for Referral Status Appt Date Fidencio Campos DPM Pt will Schedule. Referral office has left Sent 1 for pt. 12/21/[address] [place] [address] [phone]
[2020-01-04 18:22] VITALS: BP 122/84
--- NOTE | 2020-01-04 19:14 | UC ---
Lower Extremity/Ankle HPI - HPI Summary HPI Summary: 59 yo diabetic with past hx of DVT, uncertain leg, with one day hx of left calf pain. 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 No hx of recent leg trauma, but he did have a trimalleolar left ankle fracture some years ago. - History of Current Complaint Chief Complaint: UCLowerExtremity Stated Complaint: CALF PAIN Time Seen by Provider: 01/04/20 19:09 Hx Obtained From: Patient Onset/Duration: Sudden Onset, Lasting Hours - onset this morning Severity Initially: Moderate Severity Currently: Moderate Pain Intensity: 5 Aggravating Factor(s): Standing, Ambulation Alleviating Factor(s): Nothing Able to Bear Weight: Yes - Risk Factors Gout Risk Factors: Age Over 40 DVT Risk Factors: Prior DVT, Other: - long sitting in fixed position Septic Arthritis Risk Factor: Negative - Allergies/Home Medications Allergies/Adverse Reactions: Allergies Allergy/AdvReac Type Severity Reaction Status Date / Time shellfish derived Allergy Difficulty Verified 01/04/20 18:22 Breathing POWDER IN LATEX GLOVES Allergy SKIN Uncoded 01/04/20 18:22 IRRITATION Home Medications: Home Medications Fluticasone Propionate [Flonase Allergy Relief] 1 spray BOTH NARES DAILY PRN 05/24 [History Confirmed 01/04/20] Metformin HCl [Metformin ER Osmotic] 1,000 mg PO BID 01/21/16 [History Confirmed 01/04/20] Aspirin [Aspirin 81 MG TAB] 81 mg PO DAILY 10/19/17 [History Confirmed 01/04/20] Losartan TAB* [Cozaar TAB*] 25 mg PO QPM 10/19/17 [History Confirmed 01/04/20] Magnesium Oxide 400 mg PO BID 10/19/17 [History Confirmed 01/04/20] Sitagliptin Phosphate [Januvia] 100 mg PO QPM 10/19/17 [History Confirmed ] Dulaglutide [Trulicity] 0.75 mg SQ WEEKLY 07/11/19 [History Confirmed 01/04/20] PMH/Surg Hx/FS Hx/Imm Hx Endocrine History: Diabetes Cardiovascular History: Deep Vein Thrombosis GI/ History: Other - taking losartan for renal protection - Surgical History Surgical History: Yes Surgery Procedure, Year, and Place: LEFT ankle fracture REPAIR THEN HARDWARE REMOVED 1991- [facility]. LEFT lazy eye-10 YEARS [id number] MUSCLES. HEMORRHOID SURGERY- 20 YEARS AGO. LEFT SHOULDER SCOPING 04/27/15 [facility]-LEFT SHOULDER SURGERY 01/26/16. RIGHT SHOULDER SURGERY. All wisdom teeth removed 20 + years ago. trigger finger, left, [facility], 2015 - Family History Known Family History: Positive: Cardiac Disease, Diabetes - Social History Occupation: Employed Part-time, Retired Alcohol Use: Occasionally Alcohol Amount: "A couple times a month," a couple 12 oz beers Substance Use Type: None Smoking Status (MU): Never Smoked Tobacco - Immunization History Most Recent Influenza Vaccination: Fall 2016 Most Recent Tetanus Shot: 03/2013 Most Recent Pneumonia Vaccination: 2015 Review of Systems All Other Systems Reviewed And Are Negative: Yes Constitutional: Positive: Negative Skin: Positive: Negative Eyes: Positive: Negative ENT: Positive: Negative Respiratory: Positive: Negative Cardiovascular: Positive: Negative Gastrointestinal: Positive: Negative Genitourinary: Positive: Negative Motor: Positive: Other - pain in left upper calf Neurovascular: Positive: Negative Musculoskeletal: Positive: Myalgia Neurological/Mental Status: Positive: Negative Psychological: Positive: Negative Is Patient Immunocompromised?: No Physical Exam Appearance: Well-Appearing Vital Signs: Initial Vital Signs Temp 97.9 F 01/04/20 18:18 Pulse 94 01/04/20 18:18 Resp 16 01/04/20 18:18 BP 122/84 01/04/20 18:18 Pulse Ox 97 01/04/20 18:18 Eye Exam: Normal ENT: Positive: Pharynx normal Neck: Positive: Supple, Nontender, No Lymphadenopathy Respiratory: Positive: Lungs clear, Normal breath sounds Cardiovascular: Positive: RRR, No Murmur Musculoskeletal Exam: Other - Upper gastroc is tender to palpation. Musculoskeletal: Positive: No Edema, Other: - left ankle larger than left; Left calf circumference is 5mm larger than left at 12 cm below the tibial plateau. Neurological: Positive: Alert, Muscle Tone Normal Psychological Exam: Normal Skin Exam: Other - No erythema or warmth to skin of LLE--leg fully examined with jeans off. Diagnostics - Radiology No standard instances Radiology Interpretation Completed By: Radiologist - Patient Name: TIN ALEGRE Medical Record#: [id number] Ordering Physician: Aura Ronquillo MD Acct.#: [id number] : 1960 Age: 59 Sex: M Location: [facility] Exam Date: 01/04/201814 ADM Status: REG ER Order Information: VL LOWER EXT VEINS LEFT Accession Number: [id number] CPT: 05877 PROCEDURE INFORMATION: Exam: US Duplex Left Lower Extremity Veins, Limited Exam date and time: 01/04/2020 6:56 PM Age : [age] years old Clinical indication: Pain; Leg, lower; Left; Additional info: Left leg pain and swelling TECHNIQUE: Imaging protocol: Real-time Duplex ultrasound of the Left Lower Extremity with 2-D alegre scale, color Doppler flow and spectral waveform analysis with image documentation. Limited exam focused on the left lower extremity veins. COMPARISON: No relevant prior studies available. FINDINGS: Left deep veins: Unremarkable. The common femoral, femoral, proximal profunda femoral and popliteal veins are patent without thrombus. Normal Doppler waveforms. Normal compressibility and/or augmentation response. Left superficial veins: Unremarkable. Saphenofemoral junction is patent without thrombus. Soft tissues: Unremarkable. IMPRESSION: No evidence of DVT in the left leg. Dictated and Authenticated by: Lexis Talley MD 01/04/2020 7:03 PM Eastern Time ([place] and [place]) To contact [facility] with a general question: Operations Center - [phone] For direct physician to physician contact: Physician Hotline - [phone] [facility] ([facility] Facility ID #[id number]) <Electronically signed by Lexis Talley MD in OV> 01/04/201902 Dictated By: Lexis Talley MD Dictated Date/Time: 01/04/201855 Transcribed Date/Time: 01/04/201855 Copy to: This report is only to be considered final once signed by the Provider(s) as displayed in the "<Electronically Signed by >" field (s). Absence of a signature indicates the report is in a draft status and still needs to be finalized. In the event this document was created by someone other than the signing Provider, the individual initiating the document will be listed in the "Entered by:" or "Dictated by:" garvey. 1 of 2 Lower Extremity Course/Dx - Course Course Of Treatment: Discussed no DVT seen, with no findings to suggest a brewing cellulitis. Advised continued observation and monitoring with follow up needed if symptoms persist. Reviewed that repeat imaging might be needed if symptoms persist. - Differential Dx/Diagnosis Differential Diagnosis/HQI/PQRI: DVT, Sprain, Strain Provider Diagnosis: Pain of left calf Discharge ED - Sign-Out/Discharge Documenting (check all that apply): Patient Departure All imaging exams completed and their final reports reviewed: Yes - Discharge Plan Condition: Stable Disposition: HOME Patient Education Materials: Leg Pain (ED) Referrals: Merrill Slade CLINICAL PROJECT COORDINATOR [Primary Care Provider] - Additional Instructions: Today's doppler study was negative for DVT. If pain persists, repeat imaging could be indicated. Use acetaminophen 650mg as needed for ache, and continue to monitor the calf for signs of increased swelling or redness or change of symptoms. Follow up here or in the ER if pain persists, worsens, or you have increasing shortness of breath. - Billing Disposition and Condition Condition: STABLE Disposition: Home
== END 2020-01-04 19:31 | disposition home or self-care (01) ==
LOC: UCEAST 17:56
DX: M79.662 Pain in left lower leg (principal); E11.9 Type 2 diabetes mellitus without complications; Z86.718 Personal history of other venous thrombosis and embolism; Z79.82 Long term (current) use of aspirin; Z79.84 Long term (current) use of oral hypoglycemic drugs; Z91.013 Allergy to seafood; Z91.040 Latex allergy status
CPT/HCPCS: 99211; G0463